=== PATIENT | male | born 1930 | race Caucasian/White ===

== ENCOUNTER 2017-12-13 17:13 | Observation (INO) | payer MEDICARE, OTHER ==
[2017-12-13 17:29] VITALS: BP 157/66; PULSE 71; RESP 16; TEMP 98.7; O2SAT 99
[2017-12-13 17:35] LABS: AUTOMATED NEUTROPHIL # 5.3 TH/MM3 (1.8-7.7); BASOPHIL # 0.1 TH/MM3 (0-0.2); BASOPHIL % 1.2 % (0.0-2.0); EOSINOPHIL # 0.2 TH/MM3 (0-0.4); EOSINOPHIL % 2.2 % (0.0-4.0); HEMATOCRIT 38.9 % (39.0-51.0); HEMOGLOBIN 13.4 GM/DL (13.0-17.0); LYMPH % 21.7 % (9.0-44.0); LYMPHOCYTE # 1.7 TH/MM3 (1.0-4.8); MEAN CELL VOLUME 86.8 FL (80.0-100.0); MEAN CORPUSCULAR HEMOGLOBIN 29.8 PG (27.0-34.0); MEAN CORPUSCULAR HGB CONC 34.4 % (32.0-36.0); MEAN PLATELET VOLUME 9.4 FL (7.0-11.0); MONO % 4.9 % (0.0-8.0); MONOCYTE # 0.4 TH/MM3 (0-0.9); PLATELET COUNT 95 TH/MM3 (150-450); RED BLOOD COUNT 4.48 MIL/MM3 (4.50-5.90); RED CELL DISTRIBUTION WIDTH 14.1 % (11.6-17.2); WHITE BLOOD COUNT 7.7 TH/MM3 (4.0-11.0)
[2017-12-13 17:39] VITALS: O2SAT 98
--- NOTE | 2017-12-13 17:44 | PD ---
HPI Chief Complaint: Altered Mental Status Time Seen by Provider: 17:18 Travel History International Travel<30 days: No Contact w/Intl Traveler<30days: No Traveled to known affect area: No History of Present Illness HPI Patient is a 87-year-old male who is brought to the emergency room for evaluation of possible TIA. 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 Family called patient earlier today and he was noted to have dysphagia, when family arrived at patient's home, patient had complete resolution of symptoms. Patient did endorse that earlier this morning, he had a headache, reports that headache has since resolved. Family reported concerns as around 420 this afternoon, patient had another episode of dysphagia as well as confusion. When EMS arrived on scene, patient had resolution of symptoms. Daughter does report that patient has history of bilateral carotid endarterectomies in the past, she noted that one of his carotid arteries had a moderate blockage. Patient is currently taking aspirin as well as Plavix. Patient with no complaints at this time. Patient with no vision changes, no headache, no chest pain or shortness of breath. PFSH Past Medical History Cerebrovascular Accident: Yes Social History Alcohol Use: No Tobacco Use: No Substance Use: No Allergies-Medications (Allergen,Severity, Reaction): Coded Allergies: No Known Allergies (Verified Allergy, Unknown, 12/13/17) Reported Meds & Prescriptions Reported Meds & Active Scripts Active Reported Metoprolol Tartrate 25 Mg Tab 25 Mg PO DAILY Atorvastatin (Atorvastatin Calcium) 40 Mg Tab 40 Mg PO HS Valsartan 80 Mg Tab 80 Mg PO DAILY Aspirin 81 Mg Chew 81 Mg CHEW DAILY Famotidine 40 Mg Tab 40 Mg PO BID Plavix (Clopidogrel Bisulfate) 75 Mg Tab 75 Mg PO DAILY Norvasc (Amlodipine Besylate) 2.5 Mg Tab 2.5 Mg PO BID Tradjenta (Linagliptin) 5 Mg Tab 5 Mg PO DAILY Metformin (Metformin HCl) 500 Mg Tab 500 Mg PO BIDPC Amaryl (Glimepiride) 4 Mg Tab 4 Mg PO BID Take with breakfast or the first main meal Review of Systems General / Constitutional: No: Fever Eyes: No: Visual changes HENT: Positive: Headaches Cardiovascular: No: Chest Pain or Discomfort Respiratory: No: Shortness of Breath Gastrointestinal: No: Abdominal Pain Genitourinary: No: Dysuria Musculoskeletal: No: Pain Skin: No Rash Neurologic: Positive: Slurred Speech, No: Weakness Psychiatric: No: Depression Endocrine: No: Polydipsia Hematologic/Lymphatic: No: Easy Bruising Physical Exam Narrative GENERAL: NAD, pleasantly confused SKIN: Focused skin assessment warm/dry. HEAD: Atraumatic. Normocephalic. EYES: Pupils equal and round. No scleral icterus. No injection or drainage. ENT: No nasal bleeding or discharge. Mucous membranes pink and moist. NECK: Trachea midline. No JVD. CARDIOVASCULAR: Regular rate and rhythm. No murmur appreciated. RESPIRATORY: No accessory muscle use. Clear to auscultation. Breath sounds equal bilaterally. GASTROINTESTINAL: Abdomen soft, non-tender, nondistended. Hepatic and splenic margins not palpable. MUSCULOSKELETAL: No obvious deformities. No clubbing. No cyanosis. No edema. NEUROLOGICAL: Awake and alert. No obvious cranial nerve deficits. Motor grossly within normal limits. Normal speech. PSYCHIATRIC: Appropriate mood and affect Data Data Last Documented VS Vital Signs Date Time Temp Pulse Resp B/P (MAP) Pulse Ox O2 Delivery O2 Flow Rate FiO2 12/13/17 17:39 98 Room Air 12/13/17 17:29 98.7 71 16 157/66 (96) Orders Orders Electrocardiogram (12/13/17 17:18) Prothrombin Time / Inr (Pt) (12/13/17 17:18) Act Partial Throm Time (Ptt) (12/13/17 17:18) Complete Blood Count With Diff (12/13/17 17:18) Comprehensive Metabolic Panel (12/13/17 17:18) Creatine Kinase (Cpk) (12/13/17 17:18) Troponin I (12/13/17 17:18) Urinalysis - C+S If Indicated (12/13/17 17:18) Ct Brain W/O Iv Contrast(Rout) (12/13/17 17:18) Chest, Single Ap (12/13/17 17:18) Ecg Monitoring (12/13/17 17:18) Iv Access Insert/Monitor (12/13/17 17:18) Oximetry (12/13/17 17:18) Blood Glucose (12/13/17 17:18) Aspirin Chew (Aspirin Chew) (12/13/17 18:45) Admit Order (Ed Use Only) (12/13/17 18:48) Labs Laboratory Tests Test 12/13/17 17:23 12/13/17 18:41 White Blood Count 7.7 TH/MM3 Red Blood Count 4.48 MIL/MM3 Hemoglobin 13.4 GM/DL Hematocrit 38.9 % Mean Corpuscular Volume 86.8 FL Mean Corpuscular Hemoglobin 29.8 PG Mean Corpuscular Hemoglobin Concent 34.4 % Red Cell Distribution Width 14.1 % Platelet Count 95 TH/MM3 Mean Platelet Volume 9.4 FL Neutrophils (%) (Auto) 70.0 % Lymphocytes (%) (Auto) 21.7 % Monocytes (%) (Auto) 4.9 % Eosinophils (%) (Auto) 2.2 % Basophils (%) (Auto) 1.2 % Neutrophils # (Auto) 5.3 TH/MM3 Lymphocytes # (Auto) 1.7 TH/MM3 Monocytes # (Auto) 0.4 TH/MM3 Eosinophils # (Auto) 0.2 TH/MM3 Basophils # (Auto) 0.1 TH/MM3 CBC Comment AUTO DIFF Differential Comment AUTO DIFF CONFIRMED Prothrombin Time 10.5 SEC Prothromb Time International Ratio 1.0 RATIO Activated Partial Thromboplast Time 24.9 SEC Blood Urea Nitrogen 18 MG/DL Creatinine 1.20 MG/DL Random Glucose 153 MG/DL Total Protein 7.1 GM/DL Albumin 3.5 GM/DL Calcium Level 8.9 MG/DL Alkaline Phosphatase 98 U/L Aspartate Amino Transf (AST/SGOT) 20 U/L Alanine Aminotransferase (ALT/SGPT) 32 U/L Total Bilirubin 0.7 MG/DL Sodium Level 140 MEQ/L Potassium Level 4.0 MEQ/L Chloride Level 108 MEQ/L Carbon Dioxide Level 25.3 MEQ/L Anion Gap 7 MEQ/L Estimat Glomerular Filtration Rate 58 ML/MIN Total Creatine Kinase 65 U/L Troponin I LESS THAN 0.02 NG/ML MDM Medical Decision Making Medical Screen Exam Complete: Yes Emergency Medical Condition: Yes Medical Record Reviewed: Yes Interpretation(s) EKG at 1731: NSR at 63bpm, 1st degree av block, qt/qtc: 406/414 Vital Signs Date Time Temp Pulse Resp B/P (MAP) Pulse Ox O2 Delivery O2 Flow Rate FiO2 12/13/17 17:29 98.7 71 16 157/66 (96) 99 Differential Diagnosis CVA, TIA, intracranial hemorrhage, arrhythmia, electrolyte abnormality Narrative Course Patient is an 87-year-old male presents to emergency room after he had 2 episodes of dysphagia today. Patient currently with resolution of symptoms at this time. He does have an extensive history of TIAs as well as CVAs and is currently taking aspirin as well as Plavix. During the course of the patients emergency department visit, the patients history, examination, and differential diagnosis were reviewed with the patient. The patient was placed on a laundry routeman with oximetry and frequent blood pressure monitoring. The patient had an IV access obtained and blood work sent for analysis. The patient was initially provided aspirin The patients laboratory studies were reviewed and remarkable for Laboratory Tests Test 12/13/17 17:23 12/13/17 18:41 White Blood Count 7.7 TH/MM3 (4.0-11.0) Red Blood Count 4.48 MIL/MM3 (4.50-5.90) Hemoglobin 13.4 GM/DL (13.0-17.0) Hematocrit 38.9 % (39.0-51.0) Mean Corpuscular Volume 86.8 FL (80.0-100.0) Mean Corpuscular Hemoglobin 29.8 PG (27.0-34.0) Mean Corpuscular Hemoglobin Concent 34.4 % (32.0-36.0) Red Cell Distribution Width 14.1 % (11.6-17.2) Platelet Count 95 TH/MM3 (150-450) Mean Platelet Volume 9.4 FL (7.0-11.0) Neutrophils (%) (Auto) 70.0 % (16.0-70.0) Lymphocytes (%) (Auto) 21.7 % (9.0-44.0) Monocytes (%) (Auto) 4.9 % (0.0-8.0) Eosinophils (%) (Auto) 2.2 % (0.0-4.0) Basophils (%) (Auto) 1.2 % (0.0-2.0) Neutrophils # (Auto) 5.3 TH/MM3 (1.8-7.7) Lymphocytes # (Auto) 1.7 TH/MM3 (1.0-4.8) Monocytes # (Auto) 0.4 TH/MM3 (0-0.9) Eosinophils # (Auto) 0.2 TH/MM3 (0-0.4) Basophils # (Auto) 0.1 TH/MM3 (0-0.2) CBC Comment AUTO DIFF Differential Comment AUTO DIFF CONFIRMED Prothrombin Time 10.5 SEC (9.8-11.6) Prothromb Time International Ratio 1.0 RATIO Activated Partial Thromboplast Time 24.9 SEC (24.3-30.1) Blood Urea Nitrogen 18 MG/DL (7-18) Creatinine 1.20 MG/DL (0.60-1.30) Random Glucose 153 MG/DL (74-106) Total Protein 7.1 GM/DL (6.4-8.2) Albumin 3.5 GM/DL (3.4-5.0) Calcium Level 8.9 MG/DL (8.5-10.1) Alkaline Phosphatase 98 U/L (45-117) Aspartate Amino Transf (AST/SGOT) 20 U/L (15-37) Alanine Aminotransferase (ALT/SGPT) 32 U/L (12-78) Total Bilirubin 0.7 MG/DL (0.2-1.0) Sodium Level 140 MEQ/L (136-145) Potassium Level 4.0 MEQ/L (3.5-5.1) Chloride Level 108 MEQ/L (98-107) Carbon Dioxide Level 25.3 MEQ/L (21.0-32.0) Anion Gap 7 MEQ/L (5-15) Estimat Glomerular Filtration Rate 58 ML/MIN (>89) Total Creatine Kinase 65 U/L (39-308) Troponin I LESS THAN 0.02 NG/ML Radiology studies were reviewed and remarkable for Last Impressions Head CT 12/13/171717 Signed Impressions: Service Date/Time: Wednesday, December 13, 2017 18:06 - CONCLUSION: No acute intracranial disease. Cerebral atrophy. Boy Montoya MD Chest X-Ray 12/13/171717 Signed Impressions: Service Date/Time: Wednesday, December 13, 2017 17:33 - CONCLUSION: No acute disease. Ryan Bolden MD Patient with resolution of symptoms at this time. Plan to observe patient for TIA. Case reviewed with Dr. Basurto who accepts pt to service Diagnosis Primary Impression: TIA (transient ischemic attack) Fidelina Dixon DO Dec 13, 2017 17:44
--- NOTE | 2017-12-13 17:46 | RADRPT ---
EXAM DATE/TIME: 12/13/2017 17:33 [facility] COMPARISON: No previous studies available for comparison. INDICATIONS : CVA. MEDICAL HISTORY : None. SURGICAL HISTORY : None. ENCOUNTER: Initial ACUITY: 1 day PAIN SCORE: 0/10 LOCATION: Bilateral chest FINDINGS: Patient is status post sternotomy. The heart size is normal. The lungs are clear. No effusion is seen . CONCLUSION: No acute disease. Ryan Bolden MD on December 13, 2017 at 17:43 Board Certified Radiologist. This report was verified electronically.
[2017-12-13 17:48] LABS: CHLORIDE 108 MEQ/L (98-107); SODIUM (NA) 140 MEQ/L (136-145)
[2017-12-13 17:52] LABS: ALBUMIN 3.5 GM/DL (3.4-5.0); BICARBONATE 25.3 MEQ/L (21.0-32.0); BLOOD UREA NITROGEN 18 MG/DL (7-18); CALCIUM 8.9 MG/DL (8.5-10.1); GLUCOSE,RANDOM 153 MG/DL (74-106)
[2017-12-13 17:55] LABS: ALT (GPT) 32 U/L (12-78); AST (GOT) 20 U/L (15-37)
[2017-12-13 17:56] LABS: GLOMERULAR FILTRATION RATE 58 ML/MIN (>89); PROTHROMBIN TIME - PATIENT 10.5 SEC (9.8-11.6)
[2017-12-13 17:57] LABS: TOTAL BILIRUBIN ADULT 0.7 MG/DL (0.2-1.0); TOTAL PROTEIN 7.1 GM/DL (6.4-8.2)
[2017-12-13 17:58] LABS: ALKALINE PHOSPHATASE 98 U/L (45-117)
[2017-12-13 18:00] LABS: TROPONIN I LESS THAN 0.02 NG/ML (0.02-0.05)
[2017-12-13] MEDS ORDERED: ASPI-516 CHEW (18:03)
[2017-12-13] MEDS ORDERED: AMAR4TAB PO (18:03)
[2017-12-13] MEDS ORDERED: METO25TA3 PO (18:03)
[2017-12-13] MEDS ORDERED: METF500T PO (18:03)
[2017-12-13] MEDS ORDERED: NORV2.5T PO (18:03)
[2017-12-13] MEDS ORDERED: VALS1TAB64 PO (18:03)
[2017-12-13] MEDS ORDERED: TRAD5TAB PO (18:03)
[2017-12-13] MEDS ORDERED: ATOR40TA16 PO (18:03)
[2017-12-13] MEDS ORDERED: PLAV75TA29 PO (18:03)
[2017-12-13] MEDS ORDERED: FAMO40TA PO (18:03)
--- NOTE | 2017-12-13 18:24 | RADRPT ---
EXAM DATE/TIME: 12/13/2017 18:06 [facility] COMPARISON: No previous studies available for comparison. INDICATIONS : Evaluate for TIA, jumbled speech earlier, and confusion. RADIATION DOSE: 48.69 CTDIvol (mGy) MEDICAL HISTORY : Cerebrovascular disease. Hypertension. CVA,Diabetes SURGICAL HISTORY : Shant endarectomy ENCOUNTER: Initial ACUITY: 1 day PAIN SCALE: 0/10 LOCATION: cranial TECHNIQUE: Multiple contiguous axial images were obtained of the head. Using automated exposure control and adj ustment of the mA and/or kV according to patient size, radiation dose was kept as low as reasonably a chievable to obtain optimal diagnostic quality images. DICOM format image data is available electro nically for review and comparison. FINDINGS: CEREBRUM: The ventricles are normal for age. Cerebral atrophy. No evidence of midline shift, mass lesion, hemo rrhage or acute infarction. No extra-axial fluid collections are seen. POSTERIOR FOSSA: The cerebellum and brainstem are intact. The 4th ventricle is midline. The cerebellopontine angle i s unremarkable. EXTRACRANIAL: The visualized portion of the orbits is intact. SKULL: The calvaria is intact. No evidence of skull fracture. CONCLUSION: No acute intracranial disease. Cerebral atrophy. Boy Montoya MD on December 13, 2017 at 18:21 Board Certified Radiologist. This report was verified electronically.
[2017-12-13] MEDS ORDERED: ASPIRIN 81 MG CHEW TAB PO ONE (18:45)
[2017-12-13 18:50] LABS: BILIRUBIN, URINE NEG (NEG); BLOOD, URINE NEG (NEG); GLUCOSE,URINE NEG (NEG); KETONE, URINE NEG (NEG); NITRITE,URINE NEG (NEG); URINE COLOR YELLOW (YELLW/STRAW); URINE LEUKOCYTE ESTERASE NEG (NEG)
[2017-12-13 18:55] LABS: SQUAMOUS EPITHELIAL CELL URINE 0-5 /hpf (0-5)
[2017-12-13] MEDS ORDERED: NALOXONE HCL 0.4 MG/ML AMP IV PUSH PRN (19:00)
[2017-12-13] MEDS ORDERED: SODIUM CHLORIDE 0.9% FLUSH 10 ML FLUSH IV FLUSH PRN (19:00)
[2017-12-13] MEDS ORDERED: DEXTROSE 50% IN WATER 50 ML VIAL(D50) IV PUSH PRN (19:00)
[2017-12-13] MEDS ORDERED: MAGNESIUM HYDROXIDE SUSP 30 ML CUP PO PRN (19:00)
[2017-12-13] MEDS ORDERED: GLUCAGON 1 MG/ML VIAL OTHER PRN (19:00)
[2017-12-13] MEDS ORDERED: ONDANSETRON HCL 4 MG/2 ML VIAL IVP PRN (19:00)
[2017-12-13 19:13] VITALS: BP 157/66; PULSE 69; RESP 16; O2SAT 99
[2017-12-13] MEDS ORDERED: PILL SPLITTER OTHER PRN (19:15)
[2017-12-13 20:30] VITALS: BP 168/74; PULSE 68; RESP 16; TEMP 97.8; O2SAT 98
[2017-12-13] MEDS: ATORVASTATIN 40 MG TAB PO SCH (22:09)
[2017-12-13] MEDS: SODIUM CHLORIDE 0.9% FLUSH 10 ML FLUSH IV FLUSH SCH (22:09)
[2017-12-13] MEDS: amLODIPine BESYLATE 5 MG TAB PO SCH (22:09)
[2017-12-13] MEDS: FAMOTIDINE 20 MG TAB PO SCH (22:10)
[2017-12-13] MEDS: INSULIN ASPART SUPPLEMENTAL SCALE SQ SCH (22:26)
[2017-12-14] VITALS (10 sets, daily range): BP systolic 130–169; BP diastolic 62–93; PULSE 67–73; RESP 16–18; TEMP 96–98.6; O2SAT 94–98
--- NOTE | 2017-12-14 00:11 | EKG ---
Date Performed: 12/13/2017 Time Performed: 17:31:43 PTAGE: 87 years EKG: Sinus rhythm WITH FIRST DEGREE AV BLOCK WITH OCCASIONAL VENTRICULAR PREMATURE COMPLEXES POSSIBLE LEFT VENTRICULAR HYPERTROPHY NONSPECIFIC T-WAVE ABNORMALITY ABNORMAL ECG NO PREVIOUS TRACING DOCTOR: Kirit Barillas Interpretating Date/Time 12/14/2017 00:09:55
[2017-12-14 06:05] LABS: AUTOMATED NEUTROPHIL # 6.2 TH/MM3 (1.8-7.7); BASOPHIL # 0.1 TH/MM3 (0-0.2); BASOPHIL % 0.6 % (0.0-2.0); EOSINOPHIL # 0.2 TH/MM3 (0-0.4); EOSINOPHIL % 2.7 % (0.0-4.0); HEMATOCRIT 39.8 % (39.0-51.0); HEMOGLOBIN 13.2 GM/DL (13.0-17.0); LYMPH % 20.2 % (9.0-44.0); LYMPHOCYTE # 1.8 TH/MM3 (1.0-4.8); MEAN CELL VOLUME 87.9 FL (80.0-100.0); MEAN CORPUSCULAR HEMOGLOBIN 29.1 PG (27.0-34.0); MEAN CORPUSCULAR HGB CONC 33.1 % (32.0-36.0); MEAN PLATELET VOLUME 8.9 FL (7.0-11.0); MONO % 7.7 % (0.0-8.0); MONOCYTE # 0.7 TH/MM3 (0-0.9); NEUT % 68.8 % (16.0-70.0); PLATELET COUNT 87 TH/MM3 (150-450); RED BLOOD COUNT 4.53 MIL/MM3 (4.50-5.90); RED CELL DISTRIBUTION WIDTH 13.6 % (11.6-17.2)
[2017-12-14 06:14] LABS: CHLORIDE 112 MEQ/L (98-107); SODIUM (NA) 149 MEQ/L (136-145)
[2017-12-14 06:22] LABS: ALBUMIN 3.5 GM/DL (3.4-5.0)
[2017-12-14 06:23] LABS: BLOOD UREA NITROGEN 17 MG/DL (7-18); GLUCOSE,RANDOM 113 MG/DL (74-106)
[2017-12-14 06:26] LABS: ALT (GPT) 29 U/L (12-78); AST (GOT) 17 U/L (15-37); GLOMERULAR FILTRATION RATE 64 ML/MIN (>89)
[2017-12-14 06:27] LABS: TOTAL BILIRUBIN ADULT 1.1 MG/DL (0.2-1.0)
[2017-12-14 06:29] LABS: ALKALINE PHOSPHATASE 82 U/L (45-117)
[2017-12-14] MEDS: INSULIN ASPART SUPPLEMENTAL SCALE SQ SCH ×4 (08:00→20:58)
[2017-12-14] MEDS ORDERED: METOPROLOL TARTRATE 25 MG TAB PO SCH (09:00)
[2017-12-14] MEDS: SODIUM CHLORIDE 0.9% FLUSH 10 ML FLUSH IV FLUSH SCH ×2 (09:00→20:29)
[2017-12-14] MEDS ORDERED: VALSARTAN 80 MG TAB PO SCH (09:00)
[2017-12-14] MEDS: FAMOTIDINE 20 MG TAB PO SCH ×2 (09:04→20:31)
[2017-12-14] MEDS: ASPIRIN 81 MG CHEW TAB CHEW SCH (09:04)
[2017-12-14] MEDS: amLODIPine BESYLATE 5 MG TAB PO SCH (09:05)
[2017-12-14] MEDS: CLOPIDOGREL 75 MG TAB PO SCH (09:06)
--- NOTE | 2017-12-14 09:10 | RADRPT ---
EXAM DATE/TIME: 12/14/2017 08:22 [facility] COMPARISON: No previous studies available for comparison. INDICATIONS : Dysphagia, confusion, and headache. MEDICAL HISTORY : Cerebrovascular disease. Hypertension. Hypercholesterolemia. Diabetes. CVA. SURGICAL HISTORY : Bilateral Carotid Endarterectomy. ENCOUNTER: Initial ACUITY: 1 day PAIN SCORE: Nonresponsive. LOCATION: Bilateral neck PEAK SYSTOLIC VELOCITIES (cm/sec): ICA/CCA RATIO: Right: 1.9 Left: 0.4 ICA: Right: 65.3 Left: 56.9 CCA: Right: 34.1 Left: 139.7 ECA: Right: 69.8 Left: 95.8 VERTEBRAL: Right: 33.6 antegrade Left: 32.0 antegrade Elevated flow velocities and ICA/CCA ratios have been found to correlate with increased degrees of vessel stenosis, calculated as percentage of diameter relative to a normal segment of distal ICA/CCA FINDINGS: Bilateral carotid endarterectomy has been performed. There is scattered atherosclerotic plaquing with out evidence for hemodynamically significant stenosis. There is antegrade flow in the bilateral verte bral arteries. CONCLUSION: No evidence for hemodynamically significant stenosis. Bowen Alvarez MD on December 14, 2017 at 9:07 Board Certified Radiologist. This report was verified electronically.
--- NOTE | 2017-12-14 10:46 | HHI.HP ---
[facility] Raymon Crenshaw MD Admission Diagnosis TIA Diagnoses: Chief Complaint: Garbled speech Travel History International Travel<30 Days: No Contact w/Intl Traveler <30 Da: No Traveled to Known Affected Are: No History of Present Illness 87-year-old white male admitted for strokelike symptoms Patient was in his usual state of health until sometime yesterday afternoon when his daughter had taken them out to their backyard dog and the patient was noted to have a sudden bout of incoherent speech that lasted for short while. By the time he was evaluated by healthcare personnel his symptoms had resolved. Speech was slurred and garbled per the daughter. Patient however was able to maintain unchanged baseline gait not requiring any further assistive devices. Patient did report having a mild headache around that timeframe which is now gone. Daughter says the patient does have some baseline confusion. There were no reports of any drooling or choking while eating. Patient denies having any focal vision changes. In the emergency department a head CT was performed which was negative. I independently reviewed the EKG which did not show any signs of atrial fibrillation. Review of Systems Except as stated in HPI: all other systems reviewed are Neg Past Family Social History Past Medical History CVA in the past Baseline confusion/dementia Past Surgical History Endarterectomy carotid bypass Allergies: Coded Allergies: No Known Allergies (Verified Allergy, Unknown, 12/13/17) Family History Heart attacks Social History Lives at [facility] assisted living facility within the past few years Stopped smoking in his 40s Physical Exam Vital Signs Vital Signs Date Time Temp Pulse Resp B/P (MAP) Pulse Ox O2 Delivery O2 Flow Rate FiO2 12/14/17 10:00 96.1 67 18 130/78 (95) 98 12/14/17 09:30 154/93 (113) 12/14/17 09:00 167/88 (114) 12/14/17 08:57 151/68 (95) 12/14/17 08:30 156/77 (103) 12/14/17 08:06 97.6 160/73 (102) 12/14/17 04:00 98.6 73 18 169/62 (97) 95 12/13/17 20:30 97.8 68 16 168/74 (105) 98 12/13/17 19:13 69 16 157/66 (96) 99 Room Air 12/13/17 19:13 16 99 Room Air 12/13/17 17:39 98 Room Air 12/13/17 17:29 98.7 71 16 157/66 (96) 99 Physical Exam VS: afebrile GENERAL: Lying in bed, no acute distress SKIN: Warm and dry. EYES: Pupils equal and round. No scleral icterus. No injection or drainage. ENT: No nasal bleeding or discharge. Mucous membranes pink and moist. CARDIOVASCULAR: Regular rate and rhythm. no murmurs RESPIRATORY: No accessory muscle use. Clear to auscultation. Breath sounds equal bilaterally. GASTROINTESTINAL: Abdomen soft, non-tender, nondistended. Extremities: No clubbing, cyanosis, or edema. No obvious deformities. MUSCULOSKELETAL: grossly intact ROM with 5/5 strength in upper and lower extremities proximally; adequate muscle bulk and tone for age and habitus NEUROLOGICAL: Awake and alert. No obvious cranial nerve deficits. No facial droop nor slurred speech noted. Absent patellar reflexes bilaterally, intact sensation to soft touch over lower extremity shins, upper extremity forearms bilaterally, and over the face PSYCHIATRIC: Appropriate mood and affect; insight and judgment normal. Laboratory Laboratory Tests Test 12/13/17 17:23 12/13/17 18:41 12/14/17 05:38 White Blood Count 7.7 9.0 Red Blood Count 4.48 4.53 Hemoglobin 13.4 13.2 Hematocrit 38.9 39.8 Mean Corpuscular Volume 86.8 87.9 Mean Corpuscular Hemoglobin 29.8 29.1 Mean Corpuscular Hemoglobin Concent 34.4 33.1 Red Cell Distribution Width 14.1 13.6 Platelet Count 95 87 Mean Platelet Volume 9.4 8.9 Neutrophils (%) (Auto) 70.0 68.8 Lymphocytes (%) (Auto) 21.7 20.2 Monocytes (%) (Auto) 4.9 7.7 Eosinophils (%) (Auto) 2.2 2.7 Basophils (%) (Auto) 1.2 0.6 Neutrophils # (Auto) 5.3 6.2 Lymphocytes # (Auto) 1.7 1.8 Monocytes # (Auto) 0.4 0.7 Eosinophils # (Auto) 0.2 0.2 Basophils # (Auto) 0.1 0.1 CBC Comment AUTO DIFF AUTO DIFF Differential Comment AUTO DIFF CONFIRMED AUTO DIFF CONFIRMED Prothrombin Time 10.5 Prothromb Time International Ratio 1.0 Activated Partial Thromboplast Time 24.9 Blood Urea Nitrogen 18 17 Creatinine 1.20 1.10 Random Glucose 153 113 Total Protein 7.1 7.0 Albumin 3.5 3.5 Calcium Level 8.9 9.0 Alkaline Phosphatase 98 82 Aspartate Amino Transf (AST/SGOT) 20 17 Alanine Aminotransferase (ALT/SGPT) 32 29 Total Bilirubin 0.7 1.1 Sodium Level 140 149 Potassium Level 4.0 4.0 Chloride Level 108 112 Carbon Dioxide Level 25.3 27.0 Anion Gap 7 10 Estimat Glomerular Filtration Rate 58 64 Total Creatine Kinase 65 Troponin I LESS THAN 0.02 Urine Color YELLOW Urine Turbidity CLEAR Urine pH 6.0 Urine Specific [place] 1.010 Urine Protein NEG Urine Glucose (UA) NEG Urine Ketones NEG Urine Occult Blood NEG Urine Nitrite NEG Urine Bilirubin NEG Urine Urobilinogen 0.2 Urine Leukocyte Esterase NEG Urine Squamous Epithelial Cells 0-5 Microscopic Urinalysis Comment CATH-CULT NOT IND Platelet Estimate LOW Platelet Morphology Comment NORMAL Erythrocyte Sedimentation Rate 8 Thyroid Stimulating Hormone 3rd Gen 2.250 Result Diagram: 12/14/17 0538 12/14/17 0538 Imaging Last Impressions Carotid Artery Ultrasound 12/14/17 0000 Signed Impressions: Service Date/Time: Thursday, December 14, 2017 08:22 - CONCLUSION: No evidence for hemodynamically significant stenosis. Bowen Alvarez MD Head CT 12/13/171717 Signed Impressions: Service Date/Time: Wednesday, December 13, 2017 18:06 - CONCLUSION: No acute intracranial disease. Cerebral atrophy. Boy Montoya MD Chest X-Ray 12/13/171717 Signed Impressions: Service Date/Time: Wednesday, December 13, 2017 17:33 - CONCLUSION: No acute disease. Ryan Bolden MD Capruddy VTE Risk Assessment Caprini VTE Risk Assessment: Mod/High Risk (score >= 2) Caprini Risk Assessment Model Point Value = 1 Point Value = 2 Point Value = 3 Point Value = 5 Age 41-60 Minor surgery BMI > 25 kg/m2 Swollen legs Varicose veins or History of unexplained or recurrent spontaneous Oral contraceptives or hormone replacement Sepsis (< 1 month) Serious lung disease, including pneumonia (< 1 month) Abnormal pulmonary function Acute myocardial infarction Congestive heart failure (< 1 month) History of inflammatory bowel disease Medical patient at bed rest Age 61-74 Arthroscopic surgery Major open surgery (> 45 min) Laparoscopic surgery (> 45 min) Malignancy Confined to bed (> 72 hours) Immobilizing plaster cast Central venous access Age >= 75 History of VTE Family history of VTE Factor V Leiden Prothrombin [id number] Lupus anticoagulant Anticardiolipin antibodies Elevated serum homocysteine Heparin-induced thrombocytopenia Other congenital or acquired thrombophilia Stroke (< 1 month) Elective arthroplasty Hip, pelvis, or leg fracture Acute spinal cord injury (< 1 month) Prophylaxis Regimen Total Risk Factor Score Risk Level Prophylaxis Regimen 0-1 Low Early ambulation 2 Moderate Order ONE of the following: *Sequential Compression Device (SCD) *Heparin 5000 units SQ BID 3-4 Higher Order ONE of the following medications: *Heparin 5000 units SQ TID *Enoxaparin/Lovenox 40 mg SQ daily (WT < 150 kg, CrCl > 30 mL/min) *Enoxaparin/Lovenox 30 mg SQ daily (WT < 150 kg, CrCl > 10-29 mL/min) *Enoxaparin/Lovenox 30 mg SQ BID (WT < 150 kg, CrCl > 30 mL/min) AND/OR *Sequential Compression Device (SCD) 5 or more Highest Order ONE of the following medications: *Heparin 5000 units SQ TID (Preferred with Epidurals) *Enoxaparin/Lovenox 40 mg SQ daily (WT < 150 kg, CrCl > 30 mL/min) *Enoxaparin/Lovenox 30 mg SQ daily (WT < 150 kg, CrCl > 10-29 mL/min) *Enoxaparin/Lovenox 30 mg SQ BID (WT < 150 kg, CrCl > 30 mL/min) AND *Sequential Compression Device (SCD) Assessment and Plan Assessment and Plan 87-year-old white male admitted for strokelike symptoms Strokelike symptoms -Likely a transient ischemic attack his symptoms have resolved -Permissive hypertension -CT head is negative for acute findings -MRI ordered, carotid ultrasound and echocardiogram are also warranted -EKG which I independently reviewed is unremarkable for any atrial fibrillation , will consider Holter monitor upon discharge -Would be advisable to follow with neurology outpatient -Continue aspirin and Plavix for now -Continue home Lipitor for now -fall precautions, OT/ST/PT CAD -Continue home aspirin Plavix and Lipitor Jaquan Sorensen MD Dec 14, 2017 10:46
[2017-12-14 11:26] LABS: CHOLESTEROL 97 MG/DL (120-200); TRIGLYCERIDES 162 MG/DL (42-150)
[2017-12-14 11:28] LABS: HDL CHOLESTEROL 35.9 MG/DL (40.0-60.0); LDL CHOLESTEROL 29 MG/DL (0-99)
[2017-12-14 11:53] LABS: FOLATE GREATER THAN 20.0 NG/ML (3.1-17.5)
[2017-12-14 13:30] LABS: HEMOGLOBIN A1C 6.2 % (4.3-6.0)
[2017-12-14] MEDS ORDERED: LORazepam 2 MG/ML VIAL IV PUSH ONE (15:30)
--- NOTE | 2017-12-14 16:51 | RADRPT ---
EXAM DATE/TIME: 12/14/2017 16:09 [facility] COMPARISON: CT BRAIN W/O CONTRAST, December 13, 2017, 18:06. INDICATIONS : Altered mental status. MEDICAL HISTORY : Cerebrovascular disease. Carotid stenosis. Dementia. SURGICAL HISTORY : CABG ENCOUNTER: Initial ACUITY: 1 day PAIN SCORE: 0/10 LOCATION: cranial TECHNIQUE: Multiplanar, multisequence MRI of the brain was performed without contrast. FINDINGS: CEREBRUM: Moderate diffuse cerebral atrophy. The ventricles are in the upper limits of normal given degree of a trophy. No evidence of midline shift, mass lesion, hemorrhage or acute infarction. No extraaxial fl uid collections are seen. The pituitary gland and suprasellar cistern are normal in configuration. WHITE MATTER: Moderate periventricular and focal white matter T2 prolongation. POSTERIOR FOSSA: The cerebellum and brainstem are intact. The 4th ventricle is midline. The cerebellopontine angle is unremarkable. The cerebellar tonsils are normal in position. DIFFUSION IMAGING: No focal areas of restricted diffusion are seen. No evidence of acute infarction. EXTRACRANIAL: The visualized portions of the orbits and paranasal sinuses are unremarkable. CONCLUSION: 1. Senescent changes with moderate ischemic small vessel periventricular white matter demyelination. 2. No acute abnormality. Specifically, no acute infarction, hemorrhage or mass. Fidel Perry MD on December 14, 2017 at 16:45 Board Certified Radiologist. This report was verified electronically.
--- NOTE | 2017-12-14 16:52 | RADRPT ---
EXAM DATE/TIME: 12/14/2017 16:09 [facility] COMPARISON: No previous studies available for comparison. INDICATIONS : Altered mental status. MEDICAL HISTORY : Cerebrovascular disease. Carotid stenosis. Dementia. SURGICAL HISTORY : CABG ENCOUNTER: Initial ACUITY: 1 day PAIN SCORE: 0/10 LOCATION: cranial Please note a normal MRA of the brain does not entirely exclude the possibility of a small aneurysm, nor the possibility of distal intracranial vessel disease. TECHNIQUE: 3D time of flight MRA was performed. Source images, multiplanar STS MIP, and 3D volume MIP reconstru ctions were reviewed. FINDINGS: Anterior circulation: Distal intracranial internal carotid arteries are patent with flow extending to the middle and anteri or cerebral arteries. There is no evidence for aneurysm, vessel truncation or stenosis, and no eviden ce for vascular malformation. Posterior circulation: Symmetric distal vertebral arteries with flow extending to basilar artery. There is no evidence for aneurysm, vessel truncation or stenosis, and no evidence for vascular malformation. CONCLUSION: 1. Unremarkable MRA examination of the [place]. Specifically, no evidence for large vessel o cclusion or significant stenosis. Fidel Perry MD on December 14, 2017 at 16:48 Board Certified Radiologist. This report was verified electronically.
[2017-12-14] MEDS ORDERED: diphenhydrAMINE HCL 50 MG/ML VIAL IV PUSH ONE (20:15)
[2017-12-14] MEDS: ATORVASTATIN 40 MG TAB PO SCH (20:31)
[2017-12-14] MEDS ORDERED: ENOXAPARIN SODIUM 30 MG/0.3 ML SYRINGE SQ SCH (21:00)
[2017-12-14] MEDS ORDERED: HALOPERIDOL LACTATE 5 MG/ML AMP IM ONE ×2 (21:45→22:45)
[2017-12-14] MEDS ORDERED: HALOPERIDOL LACTATE 5 MG/ML AMP IM PRN (21:45)
[2017-12-15 00:36] VITALS: BP 154/72; PULSE 110; RESP 18; TEMP 97.6; O2SAT 97
[2017-12-15 07:50] VITALS: BP 126/61; PULSE 79; RESP 20; TEMP 98.1; O2SAT 97
--- NOTE | 2017-12-15 08:42 | MB ---
cc: Tulio Cooper MD, PhD DATE: 12/14/2017 REASON FOR CONSULTATION: Possible TIA. HISTORY OF PRESENT ILLNESS: Mr. 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 His states that yesterday, he suddenly developed slurring of his speech, with no focal deficits, especially in a few minutes and he was back to his baseline state. He was brought to the ER. He had no facial droop. He takes Plavix and aspirin for his previous stroke. PAST MEDICAL HISTORY: He has history of left carotid endarterectomy, coronary artery bypass procedure, stroke in the past, dementia. MEDICATIONS: Currently are Lovenox 30 mg subcutaneous daily, aspirin 81 mg daily, Plavix 75 mg daily, Lipitor 40 mg daily, Pepcid 40 mg b.i.d., Zofran p.r.n. NEUROLOGICAL PHYSICAL EXAMINATION: VITAL SIGNS: His blood pressure is 161/71, pulse 71, respirations 18, temperature 97.1 degrees. GENERAL: Higher cortical function. He is alert. Speech is fluent at this time. No dysarthria, no aphasia. He has poor recent memory. He is somewhat agitated. NEUROLOGIC: Cranial nerves intact. Motor, no focal deficits are identified. IMAGING: MR of the brain, no acute change present. There is atrophy. Carotid ultrasound, no evidence for any significant stenosis. Head MRA is unremarkable. CT brain, no acute change. LABORATORY DATA: White count is 9000, hemoglobin 13.2, hematocrit 39.8%, platelet count 87,000. Sedimentation rate is 8. His PT is 10.5. INR 1, APTT 24.9. Sodium is 149, potassium is 4, chloride 112, CO2 is 27, the BUN is 17, creatinine 1.1, GFR 64, glucose is 113, calcium is 9. AST is 17, ALT is 29. Cholesterol 97, LDL 29, triglycerides 162. ECHOCARDIOGRAM: First degree AV block, occasional PVCs. Normal sinus rhythm. IMPRESSION: 1. Possible transient ischemic attack. 2. Dementia. PLAN: Will followup on the echocardiogram. Unless a cardiac embolic source is definitely proven, would recommend continuing Plavix and aspirin therapy. Tulio Cooper MD, PhD SIMONE/ALANNAH , 08:46 PM , 09:16 PM
[2017-12-15] MEDS: INSULIN ASPART SUPPLEMENTAL SCALE SQ SCH ×3 (09:17→17:00)
[2017-12-15] MEDS: SODIUM CHLORIDE 0.9% FLUSH 10 ML FLUSH IV FLUSH SCH (09:18)
[2017-12-15] MEDS: FAMOTIDINE 20 MG TAB PO SCH (09:18)
[2017-12-15] MEDS: CLOPIDOGREL 75 MG TAB PO SCH (09:18)
[2017-12-15] MEDS: ASPIRIN 81 MG CHEW TAB CHEW SCH (09:18)
--- NOTE | 2017-12-15 09:19 | HHI.PR ---
Review/Management Diagnosis follow up on echo. If normal ok from neuro standpoint to discharge stare seroquel 100 mg HS Diagnosis/Plan: Subjective Subjective Comments No acute events reported Patient was very aggitated last PM--received haldol Active Medications Current Medications Medications (Trade) Dose Ordered Sig/Ariadna Route Start Time Stop Time Status Last Admin (NS Flush) 2 ml UNSCH PRN IV FLUSH 12/13/17 19:00 (NS Flush) 2 ml BID IV FLUSH 12/13/17 21:00 12/14/17 20:29 (Zofran Inj) 4 mg Q6H PRN IVP 12/13/17 19:00 (Narcan Inj) 0.4 mg UNSCH PRN IV PUSH 12/13/17 19:00 (Milk Of Magnesia Liq) 30 ml Q12H PRN PO 12/13/17 19:00 (Aspirin Chew) 81 mg DAILY CHEW 12/14/17 09:00 12/14/17 09:04 (Lipitor) 40 mg HS PO 12/13/17 21:00 12/14/17 20:31 (Plavix) 75 mg DAILY PO 12/14/17 09:00 12/14/17 09:06 (Pepcid) 40 mg BID PO 12/13/17 21:00 12/14/17 20:31 (D50w (Vial) Inj) 50 ml UNSCH PRN IV PUSH 12/13/17 19:00 (Glucagon Inj) 1 mg UNSCH PRN OTHER 12/13/17 19:00 (NovoLOG SUPPLEMENTAL SCALE) 1 ACHS SLIDING SCALE SQ 12/13/17 21:00 12/14/17 20:58 (Pill Splitter) 1 ea UNSCH PRN OTHER 12/13/17 19:15 (Lovenox Inj) 30 mg Q24H SQ 12/14/17 21:00 12/14/17 20:30 (Haldol Inj) 5 mg Q6H PRN IM 12/14/17 21:45 Allergies Allergies Coded Allergies No Known Allergies (Verified Allergy, Unknown, 12/13/17) Exam I&O / VS Vital Signs Date Time Temp Pulse Resp B/P (MAP) Pulse Ox O2 Delivery O2 Flow Rate FiO2 12/15/17 07:50 98.1 79 20 126/61 (82) 97 12/15/17 00:36 97.6 110 18 154/72 (99) 97 12/14/17 20:00 97.1 71 18 167/71 (103) 94 12/14/17 16:00 96.0 67 18 149/67 (94) 98 12/14/17 12:00 96.7 70 16 161/70 (100) 98 12/14/17 10:00 96.1 67 18 130/78 (95) 98 12/14/17 09:30 154/93 (113) Exam Comments alert, disoriented follow commands CN intact motor no focal deficits Objective Diagnostic Tests echo----pending Tulio Cooper MD PhD Dec 15, 2017 09:19
[2017-12-15 11:50] VITALS: BP 134/61; PULSE 74; RESP 20; TEMP 96.1; O2SAT 96
[2017-12-15] MEDS ORDERED: WALKER WHEELS/F1 MIS (13:50)
--- NOTE | 2017-12-15 13:51 | HHI.DCPOC ---
Discharge Care Plan Diagnosis: (1) TIA (transient ischemic attack) Goals to Promote Your Health * To prevent worsening of your condition and complications * To maintain your health at the optimal level Directions to Meet Your Goals Take your medications as prescribed Follow your dietary instruction Follow activity as directed Keep your appointments as scheduled Take your immunizations and boosters as scheduled If your symptoms worsen call your PCP, if no PCP go to Urgent Care Center or Emergency Room Smoking is Dangerous to Your Health. Avoid second hand smoke Call the 24-hour hour crisis hotline for domestic abuse at Mehul Martinez Dec 15, 2017 13:51
--- NOTE | 2017-12-15 14:07 | HHI.PR ---
Subjective Remarks Nursing reports patient did have some confusion and delirium last night. Resolved this a.m., tolerating p.o. intake well. Objective Vital Signs Date Time Temp Pulse Resp B/P (MAP) Pulse Ox O2 Delivery O2 Flow Rate FiO2 12/15/17 11:50 96.1 74 20 134/61 (85) 96 12/15/17 07:50 98.1 79 20 126/61 (82) 97 12/15/17 00:36 97.6 110 18 154/72 (99) 97 12/14/17 20:00 97.1 71 18 167/71 (103) 94 12/14/17 16:00 96.0 67 18 149/67 (94) 98 I/O 12/14/17 12/14/17 12/14/17 12/15/17 12/15/17 12/15/17 07:00 15:00 23:00 07:00 15:00 23:00 Intake Total 0 ml 660 ml Output Total 0 ml Balance 0 ml 660 ml Intake Oral 660 ml Other 0 ml Output Urine Total 0 ml # Voids 4 # Bowel Movements 0 Result Diagram: 12/14/17 0538 12/14/17 0538 Objective Remarks No facial droop, no slurred speech, #5 proximal upper extremity strength bilaterally alert, pleasant mood A/P Assessment and Plan Strokelike symptoms -No recurrence. Brain MRI/MRi, US ultrasound, echo cardiogram are all unremarkable -Clear to discharge from neurologist -To remain on Plavix, aspirin, Lipitor. Patient has been maximal benefit from hospitalization and is clinically stable for discharge Jaquan Cordon MD Dec 15, 2017 14:07
[2017-12-15 14:41] LABS: CALCIUM 9.1 MG/DL (8.5-10.1)
[2017-12-15 14:42] LABS: BICARBONATE 28.2 MEQ/L (21.0-32.0)
[2017-12-15 14:45] LABS: CREATININE 1.6 MG/DL (0.60-1.30)
[2017-12-15 15:50] VITALS: BP 132/98; PULSE 79; RESP 20; TEMP 96.1; O2SAT 98
--- NOTE | 2017-12-15 19:26 | ECHRPT ---
Indication: CVA/TIA CONCLUSIONS Normal left ventricular size. Mild concentric left ventricular hypertrophy. The left ventricular systolic function is low normal with an estimated ejection fraction of 50%. Aortic valve sclerosis is present. Mild thickening of the tricuspid valve leaflets. There is trace tricuspid valve regurgitation. The estimated pulmonary arterial pressure is 38 mmHg. BP: 154 / 72 HR: 110 Rhythm: Sinus MEASUREMENTS (Male / Female) Normal Values Technical Quality:Very technically difficult study M-MODE LV Diastolic Diameter MM 3.8 cm 4.2 - 5.9 / 3.9 - 5.3 cm LV Systolic Diameter MM 2.9 cm LV Ejection Fraction MM Teich 45.7 % IVS Diastolic Thickness MM 1.1 cm 0.6 - 1.0 / 0.6 - 0.9 cm LVPW Diastolic Thickness MM 1.3 cm 0.6 - 1.0 / 0.6 - 0.9 cm LV Relative Wall Thickness MM 0.6 0.24 - 0.42 / 0.22 - 0.42 DOPPLER AV Peak Velocity 110.0 cm/s AV Peak Gradient 4.8 mmHg AV Mean Gradient 2.0 mmHg AV Velocity Time Integral 18.2 cm LVOT Peak Velocity 88.0 cm/s LVOT Peak Gradient 3.1 mmHg LVOT Velocity Time Integral 11.9 cm TR Peak Velocity 263.0 cm/s TR Peak Gradient 27.7 mmHg Right Atrial Pressure 10.0 mmHg Pulmonary Artery Systolic Pressu 37.7 mmHg Right Ventricular Systolic Press 37.7 mmHg PV Peak Velocity 96.3 cm/s PV Peak Gradient 3.7 mmHg FINDINGS LEFT VENTRICLE Normal left ventricular size. Mild concentric left ventricular hypertrophy. The left ventricular systolic function is low normal with an estimated ejection fraction of 50%. RIGHT VENTRICLE Normal right ventricular size and systolic function. LEFT ATRIUM The left atrial size is normal. RIGHT ATRIUM The right atrial size is normal. ATRIAL SEPTUM The interatrial septum not well visualized. AORTA The aortic root and proximal ascending aorta are not well visualized. MITRAL VALVE The mitral valve is not well visualized. AORTIC VALVE Aortic valve sclerosis is present. TRICUSPID VALVE Mild thickening of the tricuspid valve leaflets. There is trace tricuspid valve regurgitation. The estimated pulmonary arterial pressure is 37.7 mmHg. PULMONARY VALVE No pulmonary valve regurgitation or stenosis. VESSELS The inferior vena cava was not well visualized. PERICARDIUM No pericardial effusion. Carmen Daly MD, FACC (Electronically Signed) Final Date:15 December 2017 19:26
[2017-12-15] MEDS ORDERED: QUEtiapine FUMARATE 100 MG TAB PO SCH (21:00)
== END 2017-12-15 20:28 ==
LOC: PHED 17:13 → PHEDA 18:49 → PHICU 20:24 → PH3A 12-14 09:49
PROVIDERS: ADMIT Hospitalist; ATTEND Hospitalist
DX: G45.9 Transient cerebral ischemic attack, unspecified (principal); F03.90 Unspecified dementia, unspecified severity, without behavioral disturbance, psychotic disturbance, mood disturbance, and anxiety; I25.10 Atherosclerotic heart disease of native coronary artery without angina pectoris; I44.0 Atrioventricular block, first degree; R94.31 Abnormal electrocardiogram [ECG] [EKG]; Z95.1 Presence of aortocoronary bypass graft; Z79.82 Long term (current) use of aspirin; Z79.02 Long term (current) use of antithrombotics/antiplatelets; Z79.899 Other long term (current) drug therapy; Z87.891 Personal history of nicotine dependence; Z86.73 Personal history of transient ischemic attack (TIA), and cerebral infarction without residual deficits
CPT/HCPCS: 70450; 70544; 70551; 71045; 80048; 80053; 80061; 81001; 82550; 82607; 82746; 82948; 83036; 84443; 84484; 85025; 85610; 85652; 85730; 92610; 93005; 93306; 93880; 96372; 96374; 96375; 97110; 97116; 97162; 97166; 99285; G0378; G8987; G8988; G8996; G8997; G8998; J1200; J1630; J1650; J1815; J2060

== ENCOUNTER 2017-12-25 01:11 | Emergency (ER) | payer MEDICARE, OTHER ==
[~2017-12-25] VITALS: Ht 177.8 cm; Wt 77.0 kg
[~2017-12-25 01:11] MED LIST: AMAR4TAB PO; ASPI-516 CHEW; ATOR40TA16 PO; FAMO40TA PO; METF500T PO; METO25TA3 PO; NORV2.5T PO; PLAV75TA29 PO; TRAD5TAB PO; VALS1TAB64 PO; WALKER WHEELS/F1 MIS
[2017-12-25 01:37] VITALS: BP 153/73; PULSE 75; RESP 16; TEMP 97.7; O2SAT 94
--- NOTE | 2017-12-25 01:51 | PD ---
HPI Chief Complaint: Chest Pain Time Seen by Provider: 01:18 Travel History International Travel<30 days: No Contact w/Intl Traveler<30days: No Traveled to known affect area: No History of Present Illness HPI Patient is an 87-year-old male from a nursing facility assisted living he apparently had chest pain when I asked him what he was doing when the chest pain started he said I was doing nothing he was awake he says it did not wake him from sleep however the pain is gone. He arrived by EMS but he is unaware whether they gave him any medication in the ambulance he says the pain is gone it stopped in the ambulance while he was in route. Paramedics gave report to the nurse they just gave him 500 cc normal saline and no other medical intervention. Patient reports he has a history of having a heart attack in the past but the patient does have dementia. He is awake and alert but he is a poor historian therefore ROS and HPI are limited due to his mental status PFSH Past Medical History Anxiety: Yes Depression: No Cancer: No Cardiovascular Problems: Yes High Cholesterol: Yes Chemotherapy: No Cerebrovascular Accident: Yes (2000 & MULTIPLE TIA) Diabetes: Yes Patient Takes Glucophage: Yes Endocrine: Yes Gastrointestinal Disorders: Yes Genitourinary: No Hypertension: Yes Musculoskeletal: No Neurologic: Yes Psychiatric: Yes Reproductive: No Respiratory: No Radiation Therapy: No Tetanus Vaccination: < 5 Years Influenza Vaccination: Yes Past Surgical History AICD: No Cardiac Surgery: Yes (BILATERAL CAROTID ENDARTERECTOMY) Eye Surgery: Yes (BILATERAL CATARACT SURGERY) Joint Replacement: No Pacemaker: No Other Surgery: Yes (CABG X 4 1997) Social History Alcohol Use: No Tobacco Use: No Substance Use: No Allergies-Medications (Allergen,Severity, Reaction): Coded Allergies: No Known Allergies (Verified Allergy, Unknown, 12/25/17) Reported Meds & Prescriptions Reported Meds & Active Scripts Active Walker with Front Wheels (Device) 1 Mis Mis Ea .XX DIRECTED Reported Metoprolol Tartrate 25 Mg Tab 25 Mg PO DAILY Atorvastatin (Atorvastatin Calcium) 40 Mg Tab 40 Mg PO HS Valsartan 80 Mg Tab 80 Mg PO DAILY Aspirin 81 Mg Chew 81 Mg CHEW DAILY Famotidine 40 Mg Tab 40 Mg PO BID Plavix (Clopidogrel Bisulfate) 75 Mg Tab 75 Mg PO DAILY Norvasc (Amlodipine Besylate) 2.5 Mg Tab 2.5 Mg PO BID Tradjenta (Linagliptin) 5 Mg Tab 5 Mg PO DAILY Metformin (Metformin HCl) 500 Mg Tab 500 Mg PO BIDPC Amaryl (Glimepiride) 4 Mg Tab 4 Mg PO BID Take with breakfast or the first main meal Review of Systems ROS Limitations: Poor Historian, Other: (dementia) Except as stated in HPI: all other systems reviewed are Neg Physical Exam Narrative GENERAL: alert xo2 SKIN: Warm and dry. HEAD: Atraumatic. Normocephalic. EYES: Pupils equal and round. No scleral icterus. No injection or drainage. ENT: No nasal bleeding or discharge. Mucous membranes pink and moist. NECK: Trachea midline. No JVD. CARDIOVASCULAR: Regular rate and rhythm. RESPIRATORY: No accessory muscle use. Clear to auscultation. Breath sounds equal bilaterally. GASTROINTESTINAL: Abdomen soft, non-tender, nondistended. Hepatic and splenic margins not palpable. MUSCULOSKELETAL: Extremities without clubbing, cyanosis, or edema. No obvious deformities. NEUROLOGICAL: Awake and alert. No obvious cranial nerve deficits. Motor grossly within normal limits. Five out of 5 muscle strength in the arms and legs. Normal speech. PSYCHIATRIC: Appropriate mood and affect; insight and judgment normal. Data Data Last Documented VS Orders Orders Electrocardiogram (12/25/17 01:50) Complete Blood Count With Diff (12/25/17 01:50) Comprehensive Metabolic Panel (12/25/17 01:50) Ckmb (Isoenzyme) Profile (12/25/17 01:50) Troponin I (12/25/17 01:50) Lipase (12/25/17 01:50) Urinalysis - C+S If Indicated (12/25/17 01:50) Chest, Single Ap (12/25/17 01:50) Troponin I (12/25/17 05:23) Ed Discharge Order (12/25/17 06:08) Labs Laboratory Tests Test 12/25/17 01:53 12/25/17 02:17 12/25/17 05:27 White Blood Count 7.5 TH/MM3 Red Blood Count 4.30 MIL/MM3 Hemoglobin 12.2 GM/DL Hematocrit 37.5 % Mean Corpuscular Volume 87.3 FL Mean Corpuscular Hemoglobin 28.3 PG Mean Corpuscular Hemoglobin Concent 32.4 % Red Cell Distribution Width 13.3 % Platelet Count 104 TH/MM3 Mean Platelet Volume 8.8 FL Neutrophils (%) (Auto) 63.1 % Lymphocytes (%) (Auto) 26.2 % Monocytes (%) (Auto) 8.2 % Eosinophils (%) (Auto) 2.0 % Basophils (%) (Auto) 0.5 % Neutrophils # (Auto) 4.7 TH/MM3 Lymphocytes # (Auto) 2.0 TH/MM3 Monocytes # (Auto) 0.6 TH/MM3 Eosinophils # (Auto) 0.2 TH/MM3 Basophils # (Auto) 0.0 TH/MM3 CBC Comment DIFF FINAL Differential Comment Blood Urea Nitrogen 24 MG/DL Creatinine 1.30 MG/DL Random Glucose 244 MG/DL Total Protein 6.8 GM/DL Albumin 3.1 GM/DL Calcium Level 9.0 MG/DL Alkaline Phosphatase 116 U/L Aspartate Amino Transf (AST/SGOT) 23 U/L Alanine Aminotransferase (ALT/SGPT) 38 U/L Total Bilirubin 0.5 MG/DL Sodium Level 139 MEQ/L Potassium Level 4.5 MEQ/L Chloride Level 103 MEQ/L Carbon Dioxide Level 28.1 MEQ/L Anion Gap 8 MEQ/L Estimat Glomerular Filtration Rate 52 ML/MIN Total Creatine Kinase 58 U/L Troponin I LESS THAN 0.02 NG/ML LESS THAN 0.02 NG/ML Lipase 511 U/L Urine Color YELLOW Urine Turbidity CLEAR Urine pH 7.0 Urine Specific [place] 1.010 Urine Protein NEG mg/dL Urine Glucose (UA) 500 mg/dL Urine Ketones NEG mg/dL Urine Occult Blood NEG Urine Nitrite NEG Urine Bilirubin NEG Urine Urobilinogen 0.2 MG/DL Urine Leukocyte Esterase NEG Urine WBC 0-2 /hpf Urine Squamous Epithelial Cells 0-5 /hpf Microscopic Urinalysis Comment CULT NOT INDICATED MDM Medical Decision Making Medical Screen Exam Complete: Yes Emergency Medical Condition: Yes Differential Diagnosis CP of CAD Ischemia vs GERD vs PNA vs costochondritis , vs trauma , vs fractured rib other Narrative Course pt trop x2 is negative and EKG no specific finding no ST elevatiom , I want to admit to tele but daughter reports that his last admisson for TIA he became so disoriented and that this lasted for days and she would rather him go back to j=his home assisted living situation . I agree after 2 troponins negative I do not make them sign out AMA due to risk insurance could deny re-imbusement to pt Diagnosis Primary Impression: Atypical chest pain Patient Instructions: Chest Pain (ED), General Instructions Disposition: 01 DISCHARGE HOME Condition: Suhali Cameron MD December 25, 2017 01:51
--- NOTE | 2017-12-25 02:06 | RADRPT ---
EXAM DATE/TIME: 12/25/2017 01:50 [facility] COMPARISON: CHEST SINGLE AP, December 13, 2017, 17:33. INDICATIONS : Chest pain for 6 hours MEDICAL HISTORY : Cardiovascular disease. SURGICAL HISTORY : CABG. ENCOUNTER: Initial ACUITY: 1 day PAIN SCORE: 5/10 LOCATION: Bilateral chest FINDINGS: No infiltrate, effusion or pneumothorax. Mild chronic interstitial opacities of the bases again noted . Heart size stable, within normal limits. Patient has had previous median sternotomy and CABG. CONCLUSION: No evidence of acute cardiopulmonary disease. Ryan Hernández MD on December 25, 2017 at 2:03 Board Certified Radiologist. This report was verified electronically.
[2017-12-25 02:19] LABS: AUTOMATED NEUTROPHIL # 4.7 TH/MM3 (1.8-7.7); BASOPHIL % 0.5 % (0.0-2.0); EOSINOPHIL # 0.2 TH/MM3 (0-0.4); HEMATOCRIT 37.5 % (39.0-51.0); HEMOGLOBIN 12.2 GM/DL (13.0-17.0); LYMPH % 26.2 % (9.0-44.0); MEAN CELL VOLUME 87.3 FL (80.0-100.0); MEAN CORPUSCULAR HEMOGLOBIN 28.3 PG (27.0-34.0); MEAN CORPUSCULAR HGB CONC 32.4 % (32.0-36.0); MEAN PLATELET VOLUME 8.8 FL (7.0-11.0); MONO % 8.2 % (0.0-8.0); MONOCYTE # 0.6 TH/MM3 (0-0.9); NEUT % 63.1 % (16.0-70.0); PLATELET COUNT 104 TH/MM3 (150-450); RED CELL DISTRIBUTION WIDTH 13.3 % (11.6-17.2); WHITE BLOOD COUNT 7.5 TH/MM3 (4.0-11.0)
[2017-12-25 02:24] VITALS: BP 167/74; PULSE 69; RESP 16; O2SAT 96
[2017-12-25 02:28] LABS: BILIRUBIN, URINE NEG (NEG); BLOOD, URINE NEG (NEG); GLUCOSE,URINE 500 mg/dL (NEG); KETONE, URINE NEG (NEG); NITRITE,URINE NEG (NEG); URINE COLOR YELLOW (YELLW/STRAW); URINE LEUKOCYTE ESTERASE NEG (NEG)
[2017-12-25 02:29] LABS: CHLORIDE 103 MEQ/L (98-107); SODIUM (NA) 139 MEQ/L (136-145)
[2017-12-25 02:44] LABS: SQUAMOUS EPITHELIAL CELL URINE 0-5 /hpf (0-5); WBC, URINE 0-2 /hpf (0-5)
[2017-12-25 03:59] LABS: ALBUMIN 3.1 GM/DL (3.4-5.0); ALKALINE PHOSPHATASE 116 U/L (45-117); ALT (GPT) 38 U/L (12-78); AST (GOT) 23 U/L (15-37); BICARBONATE 28.1 MEQ/L (21.0-32.0); BLOOD UREA NITROGEN 24 MG/DL (7-18); GLOMERULAR FILTRATION RATE 52 ML/MIN (>89); GLUCOSE,RANDOM 244 MG/DL (74-106); TOTAL BILIRUBIN ADULT 0.5 MG/DL (0.2-1.0); TOTAL PROTEIN 6.8 GM/DL (6.4-8.2); TROPONIN I LESS THAN 0.02 NG/ML (0.02-0.05)
[2017-12-25 04:00] VITALS: BP 146/72; PULSE 67; RESP 14; O2SAT 99
[2017-12-25 05:15] VITALS: BP 147/60; PULSE 67; RESP 14; O2SAT 96
[2017-12-25 06:16] VITALS: BP 145/72
--- NOTE | 2017-12-25 19:43 | EKG ---
Date Performed: 12/25/2017 Time Performed: 01:22:21 PTAGE: 87 years EKG: Sinus rhythm WITH FIRST DEGREE AV BLOCK WITH FREQUENT VENTRICULAR PREMATURE COMPLEXES MODERATE INTRAVENTRICULAR C ONDUCTION DELAY ABNORMAL ECG Since the PREVIOUS TRACING , no significant change noted PREVIOUS TRACING 12/13/17 DOCTOR: Johnnie Wesley Interpretating Date/Time 12/25/2017 19:43:21
== END 2017-12-25 06:42 | disposition home or self-care (01) ==
LOC: PHED 01:11
DX: R07.89 Other chest pain (principal); I44.30 Unspecified atrioventricular block; R94.31 Abnormal electrocardiogram [ECG] [EKG]; F41.9 Anxiety disorder, unspecified; E78.00 Pure hypercholesterolemia, unspecified; E11.9 Type 2 diabetes mellitus without complications; I10 Essential (primary) hypertension; Z86.73 Personal history of transient ischemic attack (TIA), and cerebral infarction without residual deficits; Z79.02 Long term (current) use of antithrombotics/antiplatelets
CPT/HCPCS: 71045; 80053; 81001; 82550; 83690; 84484; 85025; 93005; 99285

== ENCOUNTER 2018-04-21 19:48 | Inpatient (IN) ==
[2018-04-21] MEDS ORDERED: Sod Chloride 0.9% Inj 1,000 ML IV.CONT SCH (20:00)
--- NOTE | 2018-04-21 20:01 | ED ---
HPI General Chief Complaint: Stroke Alert Stated Complaint: Stroke Time Seen by Provider: 04/21/18 19:50 Source: EMS Mode of arrival: EMS Limitations: other History of Present Illness HPI Narrative: Antelmo is an 87-year-old male, on Plavix, who presents with complaint of sudden onset right facial droop and right-sided paralysis that began sometime between 630 and 645 today. EMS reports blood sugar greater than 100 with a normal blood pressure. Patient's symptoms have not changed since onset. On patient arrival here he is unable to tell me any history and continuously repeats "I do not know I do not know I do not know." Onset (ago): hour(s) Location: right face, right arm and right leg Severity: severe Relieving factors: none Exacerbating factors: none Context: sudden onset On Anticoagulants: Yes Associated symptoms: confusion Related Data Home Medications Medication Instructions Recorded Confirmed amlodipine 2.5 mg PO DAILY 04/21/18 04/21/18 aspirin [Aspir-81] 81 mg PO DAILY 04/21/18 04/21/18 baclofen 5 mg PO Q8HR 04/21/18 04/21/18 clopidogrel 75 mg PO DAILY 04/21/18 04/21/18 famotidine 40 mg PO DAILY 04/21/18 04/21/18 glimepiride 4 mg PO BID 04/21/18 04/21/18 linagliptin [Tradjenta] 5 mg PO DAILY 04/21/18 04/21/18 metformin 500 mg PO BID 04/21/18 04/21/18 metoprolol succinate 25 mg PO DAILY 04/21/18 04/21/18 Allergies Allergy/AdvReac Type Severity Reaction Status Date / Time No Known Allergies Allergy Unknown Uncoded 12/25/17 01:49 Review of Systems ROS Unobtainable ROS Unobtainable: unobtainable due to mental status PMFSH Social History Social History Recent Travel in [facility] within the Last 8 Weeks: No Recent Out of Country Travel within the Last 8 Weeks: No Exam Narrative Exam Narrative: GENERAL: Well-appearing male in no acute distress SKIN: Focused skin assessment warm/dry. No rashes. HEAD: Atraumatic. Normocephalic. EYES: Pupils equal and round. No scleral icterus. No injection or drainage. ENT: No nasal bleeding or discharge. Mucous membranes pink and moist. NECK: Trachea midline. No JVD. CARDIOVASCULAR: Regular rate and rhythm. No murmur appreciated. RESPIRATORY: No accessory muscle use. Clear to auscultation. Breath sounds equal bilaterally. GASTROINTESTINAL: Abdomen soft, non-tender, nondistended. Hepatic and splenic margins not palpable. MUSCULOSKELETAL: No obvious deformities. No clubbing. No cyanosis. No edema. NEUROLOGICAL: Awake and alert but confused. Right-sided facial droop. Patient was not seen moving right-sided extremities. He did squeeze his left hand when instructed but is not following other commands. Appears to be neglecting his right side. PSYCHIATRIC: Unable to ascertain Course Reevaluation(s) Reevaluation #1: Patient is now moving his right-sided extremities. I spoke to Dr Huggins whom stated that tpa is thus not recommended. Time: 20:48 Initial Documented Vital Signs Temperature 98.8 F 04/21/18 19:50 Pulse Rate 86 04/21/18 19:50 Respiratory Rate 16 04/21/18 19:50 Blood Pressure 191/87 H 04/21/18 19:50 Pulse Oximetry 96 04/21/18 19:50 Last Documented Vital Signs Temperature 98.8 F 04/21/18 19:50 Pulse Rate 86 04/21/18 19:50 Respiratory Rate 16 04/21/18 19:50 Blood Pressure 191/87 H 04/21/18 19:50 Pulse Oximetry 92 L 04/21/18 21:02 NIH Stroke Scale NIH Stroke Scale Level of Consciousness: 0-Alert Orientation Questions: 2-Neither task correct Responds to Commands: 1-One task correct Gaze Eye Movement: 1-Partial gaze palsy Facial Movement: 3-Complete unilateral palsy Motor Functions Arm LEFT: 0-No drift Motor Functions Arm RIGHT: 3-No effort against gravity Motor Functions Leg RIGHT: 4-No movement Best Language: 2-Severe aphasia Articulation: 1-Mild dysarthia Total: 17 Medical Decision Making MDM Narrative Medical decision making narrative: Patient is an 87-year-old male who presents with an acute cerebrovascular accident. He had right-sided facial droop and was not moving his right side extremities on arrival. Shortly after arrival he no longer had a facial droop and was moving all 4 extremities. Patient kept trying to get up out of bed and was given many different medications to try and help his agitation so that further examination could be done. Labs were unremarkable. I spoke with Dr. Huggins, neurologist on-call, who agreed that the patient was not a candidate for TPA as he is improved. I then spoke with Dr. Correa, hospitalist on-call, whom agreed to the admission. Medical Screen Exam Complete: Yes Emergency Medical Condition: Yes Differential Diagnosis Differential Diagnosis: Differential diagnosis includes but is not limited to acute ischemic stroke, acute hemorrhagic stroke, electrolyte abnormality, metabolic disturbance. Medical Records Medical records reviewed: Yes I reviewed the patient's medical records. Lab Data Lab results reviewed: Yes I reviewed the patient's lab results. Result diagrams: 04/21/18 20:20 04/21/18 20:20 Lab Results 04/21/18 04/21/18 04/21/18 Range/Units 20:20 20:20 20:20 CBC w Diff Auto diff final WBC 8.6 (4.0-11.0) th/mm3 RBC 5.32 (4.50-5.90) mil/mm3 Hgb 15.4 (13.0-17.0) gm/dL Hct 45.1 (39.0-51.0) % MCV 84.8 (80.0-100.0) fL MCH 29.0 (27.0-34.0) pg MCHC 34.2 (32.0-36.0) % RDW 14.0 (11.6-17.2) % Plt Count 106 L (150-450) th/mm3 MPV 9.5 (7.0-11.0) fL Neut % (Auto) 61.7 (16.0-70.0) % Lymph % (Auto) 29.2 (9.0-44.0) % [place] % (Auto) 6.9 (0.0-8.0) % Eos % (Auto) 1.8 (0.0-4.0) % Baso % (Auto) 0.4 (0.0-2.0) % Neut # (Auto) 5.3 (1.8-7.7) th/mm3 Lymph # (Auto) 2.5 (1.0-4.8) th/mm3 [place] # (Auto) 0.6 (0.0-0.9) th/mm3 Eos # (Auto) 0.2 (0.0-0.4) th/mm3 Baso # (Auto) 0.0 (0.0-0.2) th/mm3 WBC Differential . Differential Comment . PT 10.2 (9.8-11.6) sec INR 1.0 Ratio APTT 24.0 L (24.3-30.1) sec Sodium 133 L (136-145) meq/L Potassium 5.5 H (3.5-5.1) meq/L Chloride 100 (98-107) meq/L Carbon Dioxide 24.4 (21.0-32.0) meq/L Anion Gap 9 (5-15) meq/L BUN 21 H (7-18) mg/dL Creatinine 1.50 H (0.60-1.30) mg/dL Estimated GFR 44 L (>89) mL/min POC Glucose (68-110) mg/dl Random Glucose 232 H (74-106) mg/dL Calcium 9.0 (8.5-10.1) mg/dL Total Creatine Kinase 140 (39-308) U/L CK-MB (CK-2) 2.0 (0.5-3.6) ng/mL Troponin I Less than 0.02 L (0.02-0.05) ng/mL 04/21/18 Range/Units 20:35 CBC w Diff WBC (4.0-11.0) th/mm3 RBC (4.50-5.90) mil/mm3 Hgb (13.0-17.0) gm/dL Hct (39.0-51.0) % MCV (80.0-100.0) fL MCH (27.0-34.0) pg MCHC (32.0-36.0) % RDW (11.6-17.2) % Plt Count (150-450) th/mm3 MPV (7.0-11.0) fL Neut % (Auto) (16.0-70.0) % Lymph % (Auto) (9.0-44.0) % [place] % (Auto) (0.0-8.0) % Eos % (Auto) (0.0-4.0) % Baso % (Auto) (0.0-2.0) % Neut # (Auto) (1.8-7.7) th/mm3 Lymph # (Auto) (1.0-4.8) th/mm3 [place] # (Auto) (0.0-0.9) th/mm3 Eos # (Auto) (0.0-0.4) th/mm3 Baso # (Auto) (0.0-0.2) th/mm3 WBC Differential Differential Comment PT (9.8-11.6) sec INR Ratio APTT (24.3-30.1) sec Sodium (136-145) meq/L Potassium (3.5-5.1) meq/L Chloride (98-107) meq/L Carbon Dioxide (21.0-32.0) meq/L Anion Gap (5-15) meq/L BUN (7-18) mg/dL Creatinine (0.60-1.30) mg/dL Estimated GFR (>89) mL/min POC Glucose 229 H (68-110) mg/dl Random Glucose (74-106) mg/dL Calcium (8.5-10.1) mg/dL Total Creatine Kinase (39-308) U/L CK-MB (CK-2) (0.5-3.6) ng/mL Troponin I (0.02-0.05) ng/mL Imaging Data Attestation: I personally reviewed and interpreted this imaging study as follows : Radiologist's impression: Head CT 04/21/18 19:50 CONCLUSION: 1. Diffuse cerebral atrophy. 2. No acute infarct, acute hemorrhage, midline shift or extra-axial fluid collections. * Report was called by Dr. Zimmerman to Dr. Hwang at 8:15 PM on 04/21/2018. ECG Data EKG Prior to Arrival: No Attestation: I personally reviewed and interpreted this ECG as follows: (Paced rhythm at a rate of [address] or T-wave changes that meet sgarbossa's criteria.) Discharge Plan Discharge Disposition Patient Disposition: 30 Still Patient Discharge Condition Condition: Stable Discharge Details Diagnosis: Transient cerebral ischemia Physicians Team ED Provider: Kaitlyn Hwang Primary Care Provider: Raymon Crenshaw Attending Provider: Fidelina Correa Status ED Status: Admitted Observation Patient
--- NOTE | 2018-04-21 20:17 | CT ---
EXAM DATE: 04/21/2018 8:12 PM EDT AGE/SEX: 87 years / Male INDICATIONS: Stroke alert. Altered mental status. CLINICAL DATA: This is the patient's initial encounter. Patient reports that signs and symptoms have been present for 1 day and indicates a pain score of Nonresponsive. MEDICAL/SURGICAL HISTORY: Non-responsive. Non-responsive. RADIATION DOSE: 51.34 CTDI (mGy) COMPARISON: Previous CT of the brain dated 12/05/2017. TECHNIQUE: CT of the head without contrast. Using automated exposure control and adjustment of the mA and/or kV according to patient size, radiation dose was kept as low as reasonably achievable to ob tain optimal diagnostic quality images. DICOM format image data is available electronically for revi ew and comparison. FINDINGS: Cerebrum: Diffuse cerebral atrophy is noted. No evidence of midline shift, mass lesion, hemorrhage o r acute infarction. No extraaxial fluid collections are seen. Posterior Fossa: The cerebellum and brainstem are intact. The 4th ventricle is midline. The cerebe llopontine angle is unremarkable. Extracranial: The visualized portion of the orbits is intact. Skull: The calvaria is intact. No evidence of skull fracture. CONCLUSION: 1. Diffuse cerebral atrophy. 2. No acute infarct, acute hemorrhage, midline shift or extra-axial fluid collections. * Report was called by Dr. Zimmerman to Dr. Hwang at 8:15 PM on 04/21/2018. Electronically signed by: Eduardo Zimmerman MD 04/21/2018 8:16 PM EDT
[2018-04-21 20:30] LABS: Baso % (Auto) 0.4 % (0.0-2.0); Eos # (Auto) 0.2 th/mm3 (0.0-0.4); Eos % (Auto) 1.8 % (0.0-4.0); Hematocrit 45.1 % (39.0-51.0); Hemoglobin 15.4 gm/dL (13.0-17.0); Lymph # (Auto) 2.5 th/mm3 (1.0-4.8); Lymph % (Auto) 29.2 % (9.0-44.0); Mean Corpuscular HGB Conc 34.2 % (32.0-36.0); Mean Corpuscular Volume 84.8 fL (80.0-100.0); Mean Platelet Volume 9.5 fL (7.0-11.0); Mono # (Auto) 0.6 th/mm3 (0.0-0.9); Mono % (Auto) 6.9 % (0.0-8.0); Neut # (Auto) 5.3 th/mm3 (1.8-7.7); Neut % (Auto) 61.7 % (16.0-70.0); Platelet Count 106 th/mm3 (150-450); Red Blood Count 5.32 mil/mm3 (4.50-5.90); White Blood Count 8.6 th/mm3 (4.0-11.0)
[2018-04-21 20:35] LABS: Chloride 100 meq/L (98-107); Sodium 133 meq/L (136-145)
[2018-04-21 20:37] LABS: Potassium 5.5 meq/L (3.5-5.1)
[2018-04-21 20:38] LABS: Anion Gap 9 meq/L (5-15); Blood Urea Nitrogen 21 mg/dL (7-18); Carbon Dioxide 24.4 meq/L (21.0-32.0); Glucose,Random 232 mg/dL (74-106)
[2018-04-21 20:41] LABS: Prothrombin Time 10.2 sec (9.8-11.6)
[2018-04-21 20:42] LABS: Glomerular Filtration Rate 44 mL/min (>89)
[2018-04-21 20:45] LABS: Creatine Kinase 140 U/L (39-308)
[2018-04-21] MEDS ORDERED: Haloperidol Inj 5 MG/ML Ampul IM ONE (21:09)
[2018-04-21] MEDS ORDERED: Dextrose 50% in Water 50 ML Vial IV.PUSH PRN (21:45)
[2018-04-22] MEDS: Sod Chloride 0.9% Inj 1,000 ML IV.CONT SCH ×2 (01:22→18:17)
[2018-04-22] MEDS: Insulin NovoLOG Aspart Correctional Sugar Inj SQ SCH ×5 (04:05→22:16)
--- NOTE | 2018-04-22 09:33 | US ---
EXAM DATE: 04/22/2018 9:19 AM EDT AGE/SEX: 87 years / Male INDICATIONS: Right facial droop and right side paralysis. CLINICAL DATA: This is the patient's initial encounter. Patient reports that signs and symptoms have been present for 1 day and indicates a pain score of Nonresponsive. MEDICAL/SURGICAL HISTORY: Non-responsive. Non-responsive. COMPARISON: [facility], US CAROTID ARTERIES, 12/14/2017. . VELOCITY PARAMETERS: ICA/CCA Ratio: Right 2.3 , Left 0.7 ICA: Right 97 cm/sec, Left 93 cm/sec CCA: Right 42 cm/sec, Left 140 cm/sec ECA: Right 49 cm/sec, Left 128 cm/sec Vertebral: Right 31 cm/sec antegrade, Left 62 cm/sec antegrade FINDINGS: Right Carotid: Partially calcified atheromatous plaque involving the carotid bulb and proximal ICA. The ICA component is fairly heavily calcified generating shadowing which limits the Huber scale analys is..The waveforms are within normal limits. Left Carotid: Mild arteriosclerotic plaque is visualized scattered throughout the common carotid and proximal ICA. No luminal narrowing by grayscale analysis.. The waveforms are within normal limits. Other: None. CONCLUSION: 1. Right Internal Carotid Artery: Partially calcified atheromatous plaque with 50-69% stenosis of t he proximal ICA. 2. Left Internal Carotid Artery: Mild plaque without stenosis. 3. There is a relative reduction in velocity involving the right common carotid artery when compared to the left side raising concern for proximal brachiocephalic artery or common carotid artery origin stenosis. CTA of the carotid arteries would be beneficial to further assess this region. Electronically signed by: Chadd Vinson MD 04/22/2018 9:32 AM EDT
--- NOTE | 2018-04-22 10:05 | ECG ---
Date Performed: 04/21/2018 Time Performed: 21:36:22 PTAGE: 87 years EKG: SINUS TACHYCARDIA WITH OCCASIONAL VENTRICULAR PREMATURE COMPLEXES MODERATE INTRAVENTRICULAR CONDUCTION DELAY NONSPECIFIC ST & T-WAVE ABNORMALITY ABNORMAL ECG PREVIOUS TRACING : 04/21/2018 20.47 DOCTOR: Donn Ya Interpretating Date/Time 04/22/2018 10:04:15
[2018-04-22 10:47] LABS: Chol/HDL Ratio 4.64 Ratio; HDL Cholesterol 39.4 mg/dL (40.0-60.0)
--- NOTE | 2018-04-22 13:11 | ECG ---
Date Performed: 04/21/2018 Time Performed: 20:10:45 PTAGE: 87 years EKG: Sinus rhythm WITH FIRST DEGREE AV BLOCK WITH FREQUENT VENTRICULAR PREMATURE COMPLEXES LEFT VENTRICULAR HYPERTROPH Y AND ST-T CHANGE ABNORMAL ECG PREVIOUS TRACING : 12/25/2017 01.22 DOCTOR: Donn Ya Interpretating Date/Time 04/23/2018 06:47:43
--- NOTE | 2018-04-22 14:55 | ECHRPT ---
Indication: CVA/TIA CONCLUSIONS The left ventricular systolic function is severely reduced with an estimated ejection fraction in th e range of 30-35%. Normal left ventricular size. Wall thickness is normal. There is global left ventricular dysfunction. Diffuse calcification of the aortic valve. Moderate aortic valve stenosis. Aortic valve area is 0.79 cm. Aortic valve mean gradient is 18.8 mmHg. Mild aortic valve regurgitation. BP: / HR: Rhythm: Sinus MEASUREMENTS (Male / Female) Normal Values Technical Quality:Fair 2D ECHO LV Diastolic Diameter PLAX 4.8 cm 4.2 - 5.9 / 3.9 - 5.3 cm LV Systolic Diameter PLAX 4.1 cm IVS Diastolic Thickness 1.0 cm 0.6 - 1.0 / 0.6 - 0.9 cm LVPW Diastolic Thickness 1.0 cm 0.6 - 1.0 / 0.6 - 0.9 cm LV Relative Wall Thickness 0.4 LVOT Diameter 1.9 cm LA Systolic Diameter LX 3.3 cm 3.0 - 4.0 / 2.7 - 3.8 cm LV Ejection Fraction MOD 4C 37.0 % LV Ejection Fraction 4C AL 36.4 % M-MODE Aortic Root Diameter MM 1.9 cm AV Cusp Separation MM 1.3 cm DOPPLER AV Peak Velocity 301.3 cm/s AV Peak Gradient 36.3 mmHg AV Mean Gradient 18.7 mmHg AV Velocity Time Integral 56.1 cm AI Peak Velocity 278.5 cm/s AI Peak Gradient 31.0 mmHg AI Pressure Half Time 587.0 ms LVOT Peak Velocity 91.7 cm/s LVOT Peak Gradient 3.4 mmHg LVOT Velocity Time Integral 15.6 cm AV Area Cont Eq vti 0.8 cm AV Area Cont Eq pk 0.9 cm MV Area PHT 7.3 cm TR Peak Velocity 214.0 cm/s TR Peak Gradient 18.3 mmHg Right Atrial Pressure 10.0 mmHg Pulmonary Artery Systolic Pressu 28.3 mmHg Right Ventricular Systolic Press 28.3 mmHg PV Peak Velocity 125.0 cm/s PV Peak Gradient 6.3 mmHg FINDINGS LEFT VENTRICLE The left ventricular systolic function is severely reduced with an estimated ejection fraction in th e range of 30-35%. Normal left ventricular size. Wall thickness is normal. There is global left ventricular dysfunction. RIGHT VENTRICLE Normal right ventricular size and systolic function. LEFT ATRIUM The left atrial size is normal. RIGHT ATRIUM The right atrial size is normal. ATRIAL SEPTUM Normal atrial septal thickness without atrial level shunting by limited color doppler interrogation. AORTA The aortic root and proximal ascending aorta are normal in size on limited imaging. MITRAL VALVE Structurally normal mitral valve. No mitral valve stenosis or regurgitation. AORTIC VALVE Trileaflet aortic valve. Diffuse calcification of the aortic valve. Moderate aortic valve stenosis. Aortic valve area is 0.79 cm. Aortic valve mean gradient is 18.8 mmHg. Mild aortic valve regurgitation. TRICUSPID VALVE Structurally normal tricuspid valve. No tricuspid valve stenosis or regurgitation. PULMONARY VALVE No pulmonary valve regurgitation or stenosis. VESSELS The inferior vena cava is normal in size. PERICARDIUM No pericardial effusion. Jez Gonzales MD, FACC, FSCAI (Electronically Signed) Final Date:22 April 2018 14:54
[2018-04-22 16:04] LABS: Hemoglobin A1c 8.7 % (4.3-6.0)
--- NOTE | 2018-04-22 16:42 | P.CONNEU ---
History of Present Illness Service: Neurology Primary Care Provider: Raymon Crenshaw MD Family Provider: Raymon Crenshaw MD Chief Complaint: Possible stroke History of Present Illness: 87-year-old male with a history of dementia lives at local custodial full care and history of sundowning admitted for confusion and weakness. Son at bedside states is about the third or fourth episode he has had in the past several months. His history of carotid endarterectomy and CABG. Patient is a poor historian at present. No known history of seizures. ER physician has spoken to my partner regarding stroke alert. Is felt that the patient was not a candidate for IV TPA as his symptoms of weakness and facial droop had resolved. He also was a difficult exam due to restlessness. Review of Systems All other systems reviewed negative except as stated in HPI PMFSH - History History Provided By: Family Member - Tobacco History Second Hand Smoke Exposure: No Tobacco Use In Past 30 Days: No Smoking Status: Former smoker - Alcohol History How Often Do You Have a Drink Containing Alcohol: Never - Substance Use History Substance History: No History of Abuse - Travel History Recent Travel in the [place] Within the Last 8 Weeks: No Recent Travel Out of the Country Within the Last 8 Weeks: No - Immunization History Tetanus Immunization: <5 Years Hx Influenza Vaccine This Season: Yes Medications and Allergies Active Medications: Active Medications Dextrose (D50w Vial) 50 ml IV.PUSH UNSCH PRN PRN Reason: PER HYPOGLYCEMIA PROTOCOL Glucagon (Glucagon Inj) 1 mg OTHER PRN PRN PRN Reason: for Hypoglycemia Protocol Sodium Chloride (Ns Inj) 1,000 mls @ 70 mls/hr IV.CONT .[id number] [facility] Last Admin: 04/22/18 01:22 Dose: 70 mls/hr Insulin Aspart (Novolog Insulin Correctional Sugar Inj) 0 unit SQ ACHS AND 3AM KIMMIE; Protocol Last Admin: 04/22/18 11:43 Dose: 3 unit Sodium Chloride (Ns Flush) 2 ml IV.FLUSH PRN PRN PRN Reason: FLUSH AFTER USING IV ACCESS Allergies Allergy/AdvReac Type Severity Reaction Status Date / Time No Known Allergies Allergy Unknown Uncoded 12/25/17 01:49 Home Medications Medication Instructions Recorded Confirmed Type amlodipine 2.5 mg PO DAILY 04/21/18 04/21/18 History aspirin [Aspir-81] 81 mg PO DAILY 04/21/18 04/21/18 History baclofen 5 mg PO Q8HR 04/21/18 04/21/18 History clopidogrel 75 mg PO DAILY 04/21/18 04/21/18 History famotidine 40 mg PO DAILY 04/21/18 04/21/18 History glimepiride 4 mg PO BID 04/21/18 04/21/18 History linagliptin [Tradjenta] 5 mg PO DAILY 04/21/18 04/21/18 History metformin 500 mg PO BID 04/21/18 04/21/18 History metoprolol succinate 25 mg PO DAILY 04/21/18 04/21/18 History Exam Vital signs: Vital Signs 04/21/18 19:50 04/21/18 21:02 04/22/18 00:05 Temperature 98.8 F Pulse Rate 86 119 H Respiratory Rate 16 15 Blood Pressure 191/87 H 140/98 H Pulse Oximetry 97 92 L 100 04/22/18 00:10 04/22/18 00:22 04/22/18 00:55 Temperature Pulse Rate 112 H 120 H Respiratory Rate 24 26 H Blood Pressure 140/70 164/86 H Pulse Oximetry 96 04/22/18 01:00 04/22/18 01:45 04/22/18 02:10 Temperature 97.8 F Pulse Rate 112 H 110 H 118 H Respiratory Rate 26 H 25 H Blood Pressure 171/86 H 162/96 H Pulse Oximetry 91 L 96 04/22/18 03:10 04/22/18 04:00 04/22/18 05:00 Temperature 98.4 F Pulse Rate 120 H 114 H 118 H Respiratory Rate 26 H 23 27 H Blood Pressure 178/84 H 140/72 149/76 H Pulse Oximetry 04/22/18 06:00 04/22/18 08:09 Temperature Pulse Rate 106 H Respiratory Rate 25 H Blood Pressure 149/79 H Pulse Oximetry 95 Intake & Output 04/21/18 04/22/18 04/22/18 18:59 06:59 18:59 Weight 73 kg Other: # Incontinent Voids 4 Narrative: GENERAL: in NAD, SKIN: Warm and dry. HEAD: Atraumatic. Normocephalic. EYES: Pupils equal and round. No scleral icterus. ENT: No nasal bleeding or discharge. Mucous membranes pink and moist. NECK: Trachea midline. No JVD. CARDIOVASCULAR: Regular rate and rhythm. RESPIRATORY: No accessory muscle use. Clear to auscultation. Breath sounds equal bilaterally. GASTROINTESTINAL: Abdomen soft, non-tender, nondistended. MUSCULOSKELETAL: Extremities without clubbing, cyanosis, or edema. No obvious deformities. NEUROLOGICAL mildly somnolent,. Arouses, oriented to self only, thought his son was his , disfluency dysphonic speech, slightly reduced left nasolabial fold, blink to threat roughly intact all 4 quadrants, no tremulousness noted no nuchal rigidity, is in four-point restraint but able to follow and show me 2 fingers of both upper extremities able raise him to gravity tone normal in all 4 limbs, msr 1-2+ sym, no clonus, planterflexor, sensory examination gaits although testing limited secondary to mental status weakness PSYCHIATRIC: Mildly somnolent - Constitutional no acute distress - Routine HEENT Exam Head: Present: normocephalic Eye: Present: EOMI Results - Labs CBC & Chem 7: 04/21/18 20:20 04/21/18 20:20 Labs: Laboratory Results - last 24 hr 04/21/18 04/21/18 04/21/18 20:20 20:20 20:20 CBC w Diff Auto diff final WBC 8.6 RBC 5.32 Hgb 15.4 Hct 45.1 MCV 84.8 MCH 29.0 MCHC 34.2 RDW 14.0 Plt Count 106 L MPV 9.5 Neut % (Auto) 61.7 Lymph % (Auto) 29.2 [place] % (Auto) 6.9 Eos % (Auto) 1.8 Baso % (Auto) 0.4 Neut # (Auto) 5.3 Lymph # (Auto) 2.5 [place] # (Auto) 0.6 Eos # (Auto) 0.2 Baso # (Auto) 0.0 WBC Differential . Differential Comment . PT 10.2 INR 1.0 APTT 24.0 L Sodium 133 L Potassium 5.5 H Chloride 100 Carbon Dioxide 24.4 Anion Gap 9 BUN 21 H Creatinine 1.50 H Estimated GFR 44 L POC Glucose Random Glucose 232 H Calcium 9.0 Total Creatine Kinase 140 CK-MB (CK-2) 2.0 Troponin I Less than 0.02 L Triglycerides Cholesterol LDL Cholesterol, Calc HDL Cholesterol Cholesterol/HDL Ratio 04/21/18 04/22/18 04/22/18 20:35 03:10 07:43 CBC w Diff WBC RBC Hgb Hct MCV MCH MCHC RDW Plt Count MPV Neut % (Auto) Lymph % (Auto) [place] % (Auto) Eos % (Auto) Baso % (Auto) Neut # (Auto) Lymph # (Auto) [place] # (Auto) Eos # (Auto) Baso # (Auto) WBC Differential Differential Comment PT INR APTT Sodium Potassium Chloride Carbon Dioxide Anion Gap BUN Creatinine Estimated GFR POC Glucose 229 H 352 H Random Glucose Calcium Total Creatine Kinase CK-MB (CK-2) Troponin I Triglycerides 200 H Cholesterol 183 LDL Cholesterol, Calc 104 H HDL Cholesterol 39.4 L Cholesterol/HDL Ratio 4.64 04/22/18 04/22/18 08:56 13:03 CBC w Diff WBC RBC Hgb Hct MCV MCH MCHC RDW Plt Count MPV Neut % (Auto) Lymph % (Auto) [place] % (Auto) Eos % (Auto) Baso % (Auto) Neut # (Auto) Lymph # (Auto) [place] # (Auto) Eos # (Auto) Baso # (Auto) WBC Differential Differential Comment PT INR APTT Sodium Potassium Chloride Carbon Dioxide Anion Gap BUN Creatinine Estimated GFR POC Glucose 244 H 229 H Random Glucose Calcium Total Creatine Kinase CK-MB (CK-2) Troponin I Triglycerides Cholesterol LDL Cholesterol, Calc HDL Cholesterol Cholesterol/HDL Ratio - Imaging Impressions Head CT 04/21/18 19:50 CONCLUSION: 1. Diffuse cerebral atrophy. 2. No acute infarct, acute hemorrhage, midline shift or extra-axial fluid collections. * Report was called by Dr. Zimmerman to Dr. Hwang at 8:15 PM on 04/21/2018. Carotid Doppler Study 04/22/18 00:00 CONCLUSION: 1. Right Internal Carotid Artery: Partially calcified atheromatous plaque with 50-69% stenosis of the proximal ICA. 2. Left Internal Carotid Artery: Mild plaque without stenosis. 3. There is a relative reduction in velocity involving the right common carotid artery when compared to the left side raising concern for proximal brachiocephalic artery or common carotid artery origin stenosis. CTA of the carotid arteries would be beneficial to further assess this region. Review/Management - Diagnosis (1) Dementia Code(s): F03.90 - Unspecified dementia without behavioral disturbance Status: Acute Current Visit: Yes (2) Coronary disease Code(s): I25.10 - Atherosclerotic heart disease of [place] coronary artery without angina pectoris Status: Acute Current Visit: Yes (3) Transient cerebral ischemia Code(s): G45.9 - Transient cerebral ischemic attack, unspecified Status: Acute Current Visit: Yes (4) Cardiomyopathy Code(s): I42.9 - Cardiomyopathy, unspecified Status: Acute Current Visit: Yes - Review/Management Plan: Episode may have been resolving TIA versus complex partial seizure versus a cardiac arrhythmia Recent echo shows reduction in his ejection fraction 50% down to 30% with global reduced left ventricular function in addition to calcified aortic valve Seen by neurology November 2017 felt to have TIA was started on aspirin and Plavix Recommendations Could consider follow-up CTA brain carotids based on ultrasound report on not certain as a cause of his symptoms EEG Would also suggest upgrading him to Coumadin as he is failed aspirin and Plavix if this was a TIA as he is at high risk for cardioembolic event with his depressed ejection fraction and apical thrombus formation Could consider cardiac evaluation as well Physical therapy evaluation Discussed with medical. Discussed patient's son at bedside. Patient is over all elderly with advanced dementia in addition to advanced cardiac disease some point palliative care may need to be considered (3) Transient cerebral ischemia Qualifiers: Transient cerebral ischemia type: unspecified Qualified Code(s): G45.9 - Transient cerebral ischemic attack, unspecified
--- NOTE | 2018-04-22 17:47 | P.HP ---
History of Present Illness Service: Hospitalist Primary Care Physician: Raymon Crenshaw MD Chief Complaint: Possible stroke History of Present Illness: Mr. Contreras is a pleasant 87 year old male with a history of previous CVAs, currently on Plavix who was brought to the hospital due to lower extremity weakness, confusion. Patient's son is at bedside and does not know if patient had any unilateral weakness or speech difficulty. Patient's son feel that patient is now at his baseline. No chest pain, shortness of breath, fever, chills. No changes in bowel or bladder habits. Past medical history: Previous CVAs, DM, hypertensions. Past surgical history: Mo major Family history: No family history of Alzheimer's or Parkinson's. Social history: Does not use tobacco, alcohol or illicit drugs. Review of Systems All other systems reviewed negative except as stated in HPI PMFSH - History History Provided By: Family Member - Tobacco History Second Hand Smoke Exposure: No Tobacco Use In Past 30 Days: No Smoking Status: Former smoker - Alcohol History How Often Do You Have a Drink Containing Alcohol: Never - Substance Use History Substance History: No History of Abuse - Travel History Recent Travel in the [facility] Within the Last 8 Weeks: No Recent Travel Out of the Country Within the Last 8 Weeks: No - Immunization History Tetanus Immunization: <5 Years Hx Influenza Vaccine This Season: Yes Medications and Allergies Active Medications: Active Medications Dextrose (D50w Vial) 50 ml IV.PUSH UNSCH PRN PRN Reason: PER HYPOGLYCEMIA PROTOCOL Glucagon (Glucagon Inj) 1 mg OTHER PRN PRN PRN Reason: for Hypoglycemia Protocol Sodium Chloride (Ns Inj) 1,000 mls @ 70 mls/hr IV.CONT .[id number] KIMMIE Last Admin: 04/22/18 01:22 Dose: 70 mls/hr Insulin Aspart (Novolog Insulin Correctional Sugar Inj) 0 unit SQ ACHS AND 3AM KIMMIE; Protocol Last Admin: 04/22/18 11:43 Dose: 3 unit Sodium Chloride (Ns Flush) 2 ml IV.FLUSH PRN PRN PRN Reason: FLUSH AFTER USING IV ACCESS Allergies Allergy/AdvReac Type Severity Reaction Status Date / Time No Known Allergies Allergy Unknown Uncoded 12/25/17 01:49 Home Medications Medication Instructions Recorded Confirmed Type amlodipine 2.5 mg PO DAILY 04/21/18 04/21/18 History aspirin [Aspir-81] 81 mg PO DAILY 04/21/18 04/21/18 History baclofen 5 mg PO Q8HR 04/21/18 04/21/18 History clopidogrel 75 mg PO DAILY 04/21/18 04/21/18 History famotidine 40 mg PO DAILY 04/21/18 04/21/18 History glimepiride 4 mg PO BID 04/21/18 04/21/18 History linagliptin [Tradjenta] 5 mg PO DAILY 04/21/18 04/21/18 History metformin 500 mg PO BID 04/21/18 04/21/18 History metoprolol succinate 25 mg PO DAILY 04/21/18 04/21/18 History Exam Vital signs: Vital Signs 04/21/18 19:50 04/21/18 21:02 04/22/18 00:05 Temperature 98.8 F Pulse Rate 86 119 H Respiratory Rate 16 15 Blood Pressure 191/87 H 140/98 H Pulse Oximetry 97 92 L 100 04/22/18 00:10 04/22/18 00:22 04/22/18 00:55 Temperature Pulse Rate 112 H 120 H Respiratory Rate 24 26 H Blood Pressure 140/70 164/86 H Pulse Oximetry 96 04/22/18 01:00 04/22/18 01:45 04/22/18 02:10 Temperature 97.8 F Pulse Rate 112 H 110 H 118 H Respiratory Rate 26 H 25 H Blood Pressure 171/86 H 162/96 H Pulse Oximetry 91 L 96 04/22/18 03:10 04/22/18 04:00 04/22/18 05:00 Temperature 98.4 F Pulse Rate 120 H 114 H 118 H Respiratory Rate 26 H 23 27 H Blood Pressure 178/84 H 140/72 149/76 H Pulse Oximetry 04/22/18 06:00 04/22/18 08:09 Temperature Pulse Rate 106 H Respiratory Rate 25 H Blood Pressure 149/79 H Pulse Oximetry 95 Intake & Output 04/21/18 04/22/18 04/22/18 18:59 06:59 18:59 Weight 73 kg Other: # Incontinent Voids 4 Narrative: GENERAL: This is a well-nourished, well-developed patient, in no apparent distress. Appears somewhat lethargic. SKIN: No rashes, ecchymoses or lesions. Warm and dry. HEAD: Atraumatic. Normocephalic. No temporal or scalp tenderness. EYES: Pupils equal round and reactive. No injection or drainage. ENT: Nose without bleeding, purulent drainage or septal hematoma. Airway patent. NECK: Trachea midline. No lymphadenopathy. Supple, nontender, no meningeal signs. CARDIOVASCULAR: Regular rate and rhythm without murmurs, gallops, or rubs. No JVD. RESPIRATORY: Clear to auscultation. Breath sounds equal bilaterally. No wheezes , rales, or rhonchi. GASTROINTESTINAL: Abdomen soft, non-tender, nondistended. No guarding. MUSCULOSKELETAL: Extremities without clubbing, cyanosis, or edema. Strength symmetric. NEUROLOGICAL: Awake and alert. Cranial nerves II through XII intact. No focal neurological deficits. Does not talk much. No facial asymmetry note. Results - Labs CBC & Chem 7: 04/21/18 20:20 04/21/18 20:20 Labs: Laboratory Results - last 24 hr 04/21/18 04/21/18 04/21/18 20:20 20:20 20:20 CBC w Diff Auto diff final WBC 8.6 RBC 5.32 Hgb 15.4 Hct 45.1 MCV 84.8 MCH 29.0 MCHC 34.2 RDW 14.0 Plt Count 106 L MPV 9.5 Neut % (Auto) 61.7 Lymph % (Auto) 29.2 [place] % (Auto) 6.9 Eos % (Auto) 1.8 Baso % (Auto) 0.4 Neut # (Auto) 5.3 Lymph # (Auto) 2.5 [place] # (Auto) 0.6 Eos # (Auto) 0.2 Baso # (Auto) 0.0 WBC Differential . Differential Comment . PT 10.2 INR 1.0 APTT 24.0 L Sodium 133 L Potassium 5.5 H Chloride 100 Carbon Dioxide 24.4 Anion Gap 9 BUN 21 H Creatinine 1.50 H Estimated GFR 44 L POC Glucose Random Glucose 232 H Hemoglobin A1c Calcium 9.0 Total Creatine Kinase 140 CK-MB (CK-2) 2.0 Troponin I Less than 0.02 L Triglycerides Cholesterol LDL Cholesterol, Calc HDL Cholesterol Cholesterol/HDL Ratio 04/21/18 04/22/18 04/22/18 20:35 03:10 07:43 CBC w Diff WBC RBC Hgb Hct MCV MCH MCHC RDW Plt Count MPV Neut % (Auto) Lymph % (Auto) [place] % (Auto) Eos % (Auto) Baso % (Auto) Neut # (Auto) Lymph # (Auto) [place] # (Auto) Eos # (Auto) Baso # (Auto) WBC Differential Differential Comment PT INR APTT Sodium Potassium Chloride Carbon Dioxide Anion Gap BUN Creatinine Estimated GFR POC Glucose 229 H 352 H Random Glucose Hemoglobin A1c 8.7 H Calcium Total Creatine Kinase CK-MB (CK-2) Troponin I Triglycerides Cholesterol LDL Cholesterol, Calc HDL Cholesterol Cholesterol/HDL Ratio 04/22/18 04/22/18 04/22/18 07:43 08:56 13:03 CBC w Diff WBC RBC Hgb Hct MCV MCH MCHC RDW Plt Count MPV Neut % (Auto) Lymph % (Auto) [place] % (Auto) Eos % (Auto) Baso % (Auto) Neut # (Auto) Lymph # (Auto) [place] # (Auto) Eos # (Auto) Baso # (Auto) WBC Differential Differential Comment PT INR APTT Sodium Potassium Chloride Carbon Dioxide Anion Gap BUN Creatinine Estimated GFR POC Glucose 244 H 229 H Random Glucose Hemoglobin A1c Calcium Total Creatine Kinase CK-MB (CK-2) Troponin I Triglycerides 200 H Cholesterol 183 LDL Cholesterol, Calc 104 H HDL Cholesterol 39.4 L Cholesterol/HDL Ratio 4.64 - Imaging Impressions Head CT 04/21/18 19:50 CONCLUSION: 1. Diffuse cerebral atrophy. 2. No acute infarct, acute hemorrhage, midline shift or extra-axial fluid collections. * Report was called by Dr. Zimmerman to Dr. Hwang at 8:15 PM on 04/21/2018. Carotid Doppler Study 04/22/18 00:00 CONCLUSION: 1. Right Internal Carotid Artery: Partially calcified atheromatous plaque with 50-69% stenosis of the proximal ICA. 2. Left Internal Carotid Artery: Mild plaque without stenosis. 3. There is a relative reduction in velocity involving the right common carotid artery when compared to the left side raising concern for proximal brachiocephalic artery or common carotid artery origin stenosis. CTA of the carotid arteries would be beneficial to further assess this region. Caprini VTE Risk Assessment Caprini VTE Risk Assessment: Moderate/High Risk (score >= 2) Caprini Risk Assessment Model: Point Value = 1 Point Value = 2 Point Value = 3 Point Value = 5 Age 41-60 Minor surgery BMI > 25 kg/m2 Swollen legs Varicose veins or History of unexplained or recurrent spontaneous Oral contraceptives or hormone replacement Sepsis (< 1 month) Serious lung disease, including pneumonia (< 1 month) Abnormal pulmonary function Acute myocardial infarction Congestive heart failure (< 1 month) History of inflammatory bowel disease Medical patient at bed rest Age 61-74 Arthroscopic surgery Major open surgery (> 45 min) Laparoscopic surgery (> 45 min) Malignancy Confined to bed (> 72 hours) Immobilizing plaster cast Central venous access Age >= 75 History of VTE Family history of VTE Factor V Leiden Prothrombin [id number] Lupus anticoagulant Anticardiolipin antibodies Elevated serum homocysteine Heparin-induced thrombocytopenia Other congenital or acquired thrombophilia Stroke (< 1 month) Elective arthroplasty Hip, pelvis, or leg fracture Acute spinal cord injury (< 1 month) Prophylaxis Regimen: Total Risk Factor Score Risk Level Prophylaxis Regimen 0-1 Low Early ambulation 2 Moderate Order ONE of the following: *Sequential Compression Device (SCD) *Heparin 5000 units SQ BID 3-4 Higher Order ONE of the following medications: *Heparin 5000 units SQ TID *Enoxaparin/Lovenox 40 mg SQ daily (WT < 150 kg, CrCl > 30 mL/min) *Enoxaparin/Lovenox 30 mg SQ daily (WT < 150 kg, CrCl > 10-29 mL/min) *Enoxaparin/Lovenox 30 mg SQ BID (WT < 150 kg, CrCl > 30 mL/min) AND/OR *Sequential Compression Device (SCD) 5 or more Highest Order ONE of the following medications: *Heparin 5000 units SQ TID (Preferred with Epidurals) *Enoxaparin/Lovenox 40 mg SQ daily (WT < 150 kg, CrCl > 30 mL/min) *Enoxaparin/Lovenox 30 mg SQ daily (WT < 150 kg, CrCl > 10-29 mL/min) *Enoxaparin/Lovenox 30 mg SQ BID (WT < 150 kg, CrCl > 30 mL/min) AND *Sequential Compression Device (SCD) Assessment and Plan - Plan Ms. Contreras is an 87 year old male with a history of CVA who was admitted to the hospital due to lower extremity weakness and concern over stroke. Possible TIA Possible complex partial seizure - Appreciate neurology input. - Patient was started on Aspirin and plavix in November 2017. - If there is a strong suspicion for TIA, next step would be to consider warfarin or other newer oral anti-coagulants. - If anti-coagulation not preferred by family, we will re-start Plavix. Cardiomyopathy Aortic stenosis with reduced ejection fraction - Will discuss with patient's family. Patient may not be a candidate even for TAVR - Given reduced EF 30-35%, warfarin maybe reasonable for stroke prevention Full code. SCDs.
[2018-04-23] MEDS: Insulin NovoLOG Aspart Correctional Sugar Inj SQ SCH ×5 (04:29→23:04)
[2018-04-23] MEDS: Sod Chloride 0.9% Inj 1,000 ML IV.CONT SCH ×3 (04:30→18:13)
--- NOTE | 2018-04-23 10:11 | P.PN ---
Subjective Interval history: Follow up for TIA/Complex partial seizure as well as Cardiomyopathy and Aortic stenosis. Patient is resting in bed, more alert compared to yesterday. No fever , chills. Had some breakfast. Sons at bedside. Sons believe patient had decent quality of life before this admission. He lives at an [facility] and was ambulatory with a walker. They would like to discuss with Cardiology regarding reduced EF as well as aortic stenosis. Physical Exam Vital signs: Vital Signs 04/22/18 11:00 04/22/18 11:30 04/22/18 12:00 Temperature Pulse Rate 88 94 H 88 Respiratory Rate 23 24 26 H Blood Pressure 150/73 H Pulse Oximetry 98 04/22/18 13:00 04/22/18 14:00 04/22/18 15:00 Temperature Pulse Rate 96 H 82 86 Respiratory Rate 21 26 H 20 Blood Pressure Pulse Oximetry 94 L 96 96 04/22/18 16:00 04/22/18 16:36 04/22/18 17:00 Temperature 97.3 F L Pulse Rate 92 H 86 80 Respiratory Rate 25 H 24 6 L Blood Pressure 172/63 H Pulse Oximetry 95 97 92 L 04/22/18 18:00 04/22/18 19:00 04/22/18 19:33 Temperature Pulse Rate 88 100 H 102 H Respiratory Rate 22 20 26 H Blood Pressure 184/91 H 175/86 H Pulse Oximetry 95 96 95 04/22/18 19:39 04/22/18 20:00 04/22/18 23:34 Temperature Pulse Rate 99 H 108 H Respiratory Rate 26 H Blood Pressure 144/75 H Pulse Oximetry 95 04/23/18 00:00 04/23/18 03:00 04/23/18 04:00 Temperature Pulse Rate 98 H 104 H 124 H Respiratory Rate 15 15 20 Blood Pressure 125/74 122/65 164/81 H Pulse Oximetry 04/23/18 05:00 04/23/18 06:00 04/23/18 08:52 Temperature Pulse Rate 114 H 102 H Respiratory Rate 26 H 25 H Blood Pressure 143/94 H 132/64 Pulse Oximetry 97 98 Intake & Output 04/22/18 04/23/18 04/23/18 18:59 06:59 18:59 Intake Total 1000 / 1000 1000 / 1000 Balance 1000 / 1000 1000 / 1000 Weight 72.8 kg Intake: IV 1000 / 1000 1000 / 1000 NS Inj 1,000 ML @ 70 mls/hr IV. 1000 / 1000 1000 / 1000 CONT .[id number] KIMMIE Rx#: [id number] Other: # Voids 8 8 # Incontinent Voids 6 Narrative: GENERAL: Alert, NAD. SKIN: Warm and dry. HEAD: Normocephalic. EYES: No scleral icterus. No injection or drainage. NECK: Supple, trachea midline. No JVD or lymphadenopathy. CARDIOVASCULAR: Regular rate and rhythm murmurs, gallops, or rubs. There is a significant systolic murmur, best heard on the left sternal border, radiates to the carotid arteries. RESPIRATORY: Breath sounds equal bilaterally. No accessory muscle use. GASTROINTESTINAL: Abdomen soft, non-tender, nondistended. MUSCULOSKELETAL: No cyanosis, or edema. BACK: Nontender without obvious deformity. No CVA tenderness. Results - Labs CBC & Chem 7: 04/21/18 20:20 04/21/18 20:20 Laboratory Results - last 24 hr 04/22/18 04/22/18 04/22/18 07:43 07:43 13:03 POC Glucose 229 H Hemoglobin A1c 8.7 H Triglycerides 200 H Cholesterol 183 LDL Cholesterol, Calc 104 H HDL Cholesterol 39.4 L Cholesterol/HDL Ratio 4.64 04/22/18 04/22/18 04/23/18 18:21 21:47 04:28 POC Glucose 294 H 264 H 269 H Hemoglobin A1c Triglycerides Cholesterol LDL Cholesterol, Calc HDL Cholesterol Cholesterol/HDL Ratio 04/23/18 08:04 POC Glucose 207 H Hemoglobin A1c Triglycerides Cholesterol LDL Cholesterol, Calc HDL Cholesterol Cholesterol/HDL Ratio - Imaging Head CT 04/21/18 19:50 CONCLUSION: 1. Diffuse cerebral atrophy. 2. No acute infarct, acute hemorrhage, midline shift or extra-axial fluid collections. * Report was called by Dr. Zimmerman to Dr. Hwang at 8:15 PM on 04/21/2018. Carotid Doppler Study 04/22/18 00:00 CONCLUSION: 1. Right Internal Carotid Artery: Partially calcified atheromatous plaque with 50-69% stenosis of the proximal ICA. 2. Left Internal Carotid Artery: Mild plaque without stenosis. 3. There is a relative reduction in velocity involving the right common carotid artery when compared to the left side raising concern for proximal brachiocephalic artery or common carotid artery origin stenosis. CTA of the carotid arteries would be beneficial to further assess this region. Head MRA 04/23/18 00:00 CONCLUSION: Negative MRA Cow ([place] [facility] [place]) non contrast. Head CTA 04/23/18 00:07 CONCLUSION: Negative CTA Head. 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 Assessment and Plan - Plan Ms. Contreras is an 87 year old male with a history of CVA who was admitted to the hospital due to lower extremity weakness and concern over stroke. Possible TIA Possible complex partial seizure - Appreciate neurology input. - Patient was started on Aspirin and plavix in November 2017. - If there is a strong suspicion for TIA, next step would be to consider warfarin or other newer oral anti-coagulants. - If anti-coagulation not preferred by family, we will re-start Plavix. - Patient's family will discuss regarding possibility of Warfarin use. Cardiomyopathy Aortic stenosis with reduced ejection fraction - Will discuss with patient's family. Patient may not be a candidate even for TAVR - Given reduced EF 30-35%, warfarin maybe reasonable for stroke prevention - Will consult Cardiology for an eval as well as for an input with regards to aortic stenosis. Full code. Will start patient on Lovenox for DVT prophylaxis.
--- NOTE | 2018-04-23 11:51 | CT ---
EXAM DATE: 04/23/2018 11:43 AM EDT AGE/SEX: 87 years / Male INDICATIONS: Stroke alert 2 days ago. Altered mental status. Lower extremity weakness. CLINICAL DATA: This is the patient's initial encounter. Patient reports that signs and symptoms have been present for 2 days and indicates a pain score of 0/10. MEDICAL/SURGICAL HISTORY: Cardiovascular disease. Cerebrovascular disease. CABG. RADIATION DOSE: 42.25 CTDI (mGy) ; Combined studies COMPARISON: [facility], MRA BRAIN W/O CONTRAST, 12/14/2017. . TECHNIQUE: Volumetric scanning was performed using a multi-row detector CT scanner during bolus infu neo of 85 ml Omnipaque 350 (iohexol) nonionic water-soluble contrast as a cumulative dose for multi ple exams. The data was post processed with a variety of visualization algorithms including full vo lume maximum intensity projection, multi-planar sliding thin slab reformation, curved planar reformat ion, and surface rendering techniques. Using automated exposure control and adjustment of the mA and /or kV according to patient size, radiation dose was kept as low as reasonably achievable to obtain o ptimal diagnostic quality images. DICOM format image data is available electronically for review and comparison. FINDINGS: There is excellent visualization of the major intracranial arteries out to the second-order branch ve ssels. There is no evidence for aneurysm, vessel truncation or stenosis, and no evidence for vascula r malformation. CONCLUSION: Negative CTA Head. Electronically signed by: Ryan Hudson MD 04/23/2018 11:50 AM EDT
--- NOTE | 2018-04-23 11:57 | CT ---
EXAM DATE: 04/23/2018 11:44 AM EDT AGE/SEX: 87 years / Male INDICATIONS: Stroke alert 2 days ago. Altered mental status. Lower extremity weakness. CLINICAL DATA: This is the patient's initial encounter. Patient reports that signs and symptoms have been present for 2 days and indicates a pain score of 0/10. MEDICAL/SURGICAL HISTORY: Cardiovascular disease. Cerebrovascular disease. CABG. RADIATION DOSE: 42.25 CTDI (mGy) ; Combined studies COMPARISON: No prior exams available for comparison. TECHNIQUE: Volumetric scanning was performed using a multirow detector CT scanner during bolus infus ion of 85 ml Omnipaque 350 (iohexol) nonionic water-soluble contrast as a cumulative dose for multip le exams. The data was postprocessed with a variety of visualization algorithms including full-volu me maximum intensity projection, multiplanar sliding thin-slab reformation, curved-planar reformation , and surface-rendering techniques. Using automated exposure control and adjustment of the mA and/or kV according to patient size, radiation dose was kept as low as reasonably achievable to obtain opti mal diagnostic quality images. DICOM format image data is available electronically for review and co mparison. Percent stenosis is calculated using the diameter of the stenotic region over the diameter of the nor mal distal internal carotid artery. FINDINGS: Aortic Arch: Truncus arch anatomy noted. Arch vessels are widely patent. Right Carotid: Eccentric calcific plaque involving the origin of the right ICA producing close to 50 % stenotic narrowing. Beyond this proximal disease, the ICA regains normal caliber and appearance and is widely patent to the skull base. Left Carotid: The common carotid artery is intact. The carotid bulb has a normal configuration with out ulceration or narrowing. The internal carotid artery lumen is smooth without stenosis. The exte rnal carotid artery is intact. Vertebrals: The vertebral arteries have a symmetric diameter. No stenotic lesions are seen. CONCLUSION: 50% right carotid bifurcation stenosis. Electronically signed by: Ryan Hudson MD 04/23/2018 11:56 AM EDT
--- NOTE | 2018-04-23 12:01 | MR ---
EXAM DATE: 04/23/2018 11:38 AM EDT AGE/SEX: 87 years / Male INDICATIONS: CVA. CLINICAL DATA: This is the patient's initial encounter. Patient reports that signs and symptoms have been present for 1 day and indicates a pain score of 0/10. MEDICAL/SURGICAL HISTORY: Diabetes mellitus type II. Hypertension. CABG. Neck stent. COMPARISON: [facility], MRA BRAIN W/O CONTRAST, 12/14/2017. . TECHNIQUE: 3D [id number] MRA was performed. Source images, multiplanar STS MIP, and 3D volum e MIP reconstructions were reviewed. FINDINGS: There is excellent visualization of the major intracranial arteries out to the second-order branch ve ssels. There is no evidence for aneurysm, vessel truncation or stenosis, and no evidence for vascula r malformation. CONCLUSION: Negative MRA Cow ([place] [facility] [place]) non contrast. Electronically signed by: Ryan Hudson MD 04/23/2018 11:59 AM EDT
--- NOTE | 2018-04-23 12:07 | MR ---
EXAM DATE: 04/23/2018 11:40 AM EDT AGE/SEX: 87 years / Male INDICATIONS: CVA. CLINICAL DATA: This is the patient's initial encounter. Patient reports that signs and symptoms have been present for 3 days and indicates a pain score of 0/10. MEDICAL/SURGICAL HISTORY: Hypertension. Diabetes mellitus type II. CABG. Stent in neck. COMPARISON: [facility], MRI BRAIN W/O CONTRAST, 12/14/2017. . TECHNIQUE: Multiplanar, multisequence examination of the brain was performed without contrast. FINDINGS: Study is degraded by patient motion. There is a focus of restricted diffusion in the left thalamus associated with increased T2 signal con sistent with evolving subacute infarction. Elsewhere, symmetric central and cortical atrophic change is noted. There is moderate patchy T2 prolo ngation in periventricular and occasional subcortical white matter which is stable and likely microva scular ischemic in etiology. There is no evidence of intracranial mass or hemorrhage. The extracranial structures are grossly ever gn in intact. CONCLUSION: Subacute left thalamic infarction. Electronically signed by: Ryan Hudson MD 04/23/2018 12:06 PM EDT
[2018-04-23] MEDS: Enoxaparin Inj 40 MG/0.4 ML Syringe SQ SCH (13:16)
[2018-04-23] MEDS: amLODIPine 5 MG Tablet PO SCH (13:16)
--- NOTE | 2018-04-23 18:04 | MB ---
cc: Bryanna Hussein MD DATE: 04/23/2018 REASONS FOR CONSULTATION: Aortic stenosis and cardiomyopathy. HISTORY OF PRESENT ILLNESS: Mr. Contreras is an 87-year-old man, who does have a history of multiple CVAs and dementia, who is an [facility] resident. He presented to the hospital with lower extremity weakness and confusion. The patient underwent an echo, which was found to have both aortic stenosis and a reduced ejection fraction. Cardiology was subsequently consulted. The patient is really not able to give any valuable history. His son indicates that he does typically ambulate and converse, though is in an NURSING HOME. PAST MEDICAL HISTORY: 1. Significant for multiple CVAs. 2. Dementia. 3. Prior CABG. 4. Hypertension. CURRENT MEDICATIONS: Per the record. SOCIAL HISTORY: The patient is an NURSING HOME resident. REVIEW OF SYSTEMS: Patient is unable. FAMILY HISTORY: Unable. PHYSICAL EXAMINATION: VITAL SIGNS: 90, 28, 161/77. GENERAL: He is an overweight man who, is in no apparent distress. NECK: Free from JVD. LUNGS: Clear to auscultation. CARDIOVASCULAR: He has a harsh systolic ejection murmur with a regular rhythm. No rubs or gallops are appreciated. ABDOMEN: Soft. EXTREMITIES: Free from edema. DIAGNOSTIC DATA: Echocardiogram from 04/22/2018 shows an EF of 30-35%. The aortic valve has a mean gradient of 19 mmHg. Telemetry shows normal sinus rhythm, with a PVC. LABORATORY DATA: Significant for a creatinine of 1.5, sodium of 133, and a potassium of 5.5. ASSESSMENT AND PLAN: 1. Aortic stenosis - the patient certainly has at least mild to moderate aortic stenosis. With his reduced EF, it is difficult to know if this is potentially severe aortic stenosis. He is in any case asymptomatic. He is not a candidate for a TAVR or AVR in the setting of a cerebrovascular accident and/or mental status changes. Even if he were to recover his mental status, he would be a relatively poor candidate given his multiple comorbid conditions including renal insufficiency, hyponatremia, and dementia. Nonetheless, this could be reconsidered as an outpatient if he does improve. 2. Cardiomyopathy - again is not clear if this is secondary to an old ischemic etiology versus hypertensive versus aortic stenosis. In any case, he is quite hypertensive this admission and I would add a beta wellington. VITALY inhibitors are felt relatively contraindicated with his renal insufficiency. 3. History of CABG and coronary artery disease - as above. The patient does appear essentially asymptomatic at this point. I would continue with conservative measures. 4. Mental status changes - this is per the primary team. MD FRANCO Moreau/alex , 05:18 PM , 05:29 PM
[2018-04-24 06:36] LABS: Baso # (Auto) 0.1 th/mm3 (0.0-0.2); Baso % (Auto) 0.5 % (0.0-2.0); Eos # (Auto) 0.1 th/mm3 (0.0-0.4); Eos % (Auto) 1.3 % (0.0-4.0); Hematocrit 42.2 % (39.0-51.0); Hemoglobin 14.3 gm/dL (13.0-17.0); Lymph # (Auto) 1.6 th/mm3 (1.0-4.8); Lymph % (Auto) 15.1 % (9.0-44.0); Mean Corpuscular Hemoglobin 29.4 pg (27.0-34.0); Mean Corpuscular Volume 86.5 fL (80.0-100.0); Mean Platelet Volume 8.5 fL (7.0-11.0); Mono # (Auto) 0.7 th/mm3 (0.0-0.9); Mono % (Auto) 6.9 % (0.0-8.0); Neut # (Auto) 7.8 th/mm3 (1.8-7.7); Neut % (Auto) 76.2 % (16.0-70.0); Platelet Count 111 th/mm3 (150-450); Red Blood Count 4.88 mil/mm3 (4.50-5.90); Red Cell Distribution Width 13.7 % (11.6-17.2); White Blood Count 10.3 th/mm3 (4.0-11.0)
[2018-04-24] MEDS: Insulin NovoLOG Aspart Correctional Sugar Inj SQ SCH ×5 (06:41→22:18)
[2018-04-24 07:21] LABS: Calcium 8.1 mg/dL (8.5-10.1); Carbon Dioxide 25.3 meq/L (21.0-32.0); Potassium 3.6 meq/L (3.5-5.1)
--- NOTE | 2018-04-24 08:48 | MG ---
cc: Madeline Huggins MD EEG NUMBER: [id number] REFERRING PHYSICIAN: Wai Stephens MD With photic stimulation, awake, drowsy, asleep study. MRI, subacute left thalamic infarct. Admitted with stroke symptoms on insulin, Norvasc, Lovenox, Toprol. DESCRIPTION OF RECORD: There is quite a bit of artifact but overall 6 Hz , 5.5-6 Hz background noted. Some abnormalities in the EKG, difficult to tell if this is a normal rhythm or not unfortunately. Maybe some atrial fibrillation. Otherwise overall symmetrical background slowing. No epileptiform features. Hyperventilation was not performed. Photic stimulation with a mild driving response. IMPRESSION: Abnormal EEG due to mild background slowing may be related to the patient's history of dementia versus encephalopathic process. No epileptiform features. Clinical correlation. MD KASSY Wall/vaibhav/traci , 07:49 AM , 07:53 AM
--- NOTE | 2018-04-24 09:51 | P.PNIM ---
Subjective Interval history: The pt was resting comfortably in bed. He had no acute complaints. Family at the bedside were wondering about disposition. They also stated they would prefer he stay on aspirin and Plavix rather than start Coumadin. Discussed with nursing. Physical Exam Vital signs: Vital Signs 04/23/18 10:00 04/23/18 12:00 04/23/18 13:00 Temperature Pulse Rate 102 H 104 H 102 H Respiratory Rate 27 H 25 H 24 Blood Pressure 143/76 H 145/91 H 181/85 H Pulse Oximetry 04/23/18 14:00 04/23/18 15:00 04/23/18 17:00 Temperature 98.3 F Pulse Rate 112 H 90 96 H Respiratory Rate 29 H 28 H 33 H Blood Pressure 161/81 H 161/77 H 146/65 H Pulse Oximetry 04/23/18 19:50 04/23/18 20:00 04/24/18 04:00 Temperature 98.3 F 98.0 F Pulse Rate 93 H 94 H Respiratory Rate 18 18 Blood Pressure 146/63 H 168/78 H Pulse Oximetry 97 98 97 04/24/18 07:00 04/24/18 08:05 04/24/18 08:36 Temperature Pulse Rate 93 H 90 Respiratory Rate Blood Pressure Pulse Oximetry 97 Intake & Output 04/23/18 04/24/18 04/24/18 18:59 06:59 18:59 Intake Total 720 / 720 Balance 720 / 720 Weight 74.1 kg Intake: Oral 720 / 720 Other: # Incontinent Voids 3 # Urine Diapers 7 Narrative: GENERAL: NAD. SKIN: Warm and dry. HEAD: Normocephalic. EYES: No scleral icterus. No injection or drainage. NECK: Supple, trachea midline. No JVD or lymphadenopathy. CARDIOVASCULAR: Regular rate and rhythm murmurs, gallops, or rubs. There is a significant systolic murmur, best heard on the left sternal border, radiates to the carotid arteries. RESPIRATORY: Breath sounds equal bilaterally. No accessory muscle use. GASTROINTESTINAL: Abdomen soft, non-tender, nondistended. MUSCULOSKELETAL: No cyanosis, or edema. BACK: Nontender without obvious deformity. No CVA tenderness. Results - Labs CBC & Chem 7: 04/24/18 05:50 04/24/18 05:50 Laboratory Results - last 24 hr 09/02/0204/23/18 04/24/18 12:22 16:38 05:50 CBC w Diff Auto diff final WBC 10.3 RBC 4.88 Hgb 14.3 Hct 42.2 MCV 86.5 MCH 29.4 MCHC 34.0 RDW 13.7 Plt Count 111 L MPV 8.5 Neut % (Auto) 76.2 H Lymph % (Auto) 15.1 [place] % (Auto) 6.9 Eos % (Auto) 1.3 Baso % (Auto) 0.5 Neut # (Auto) 7.8 H Lymph # (Auto) 1.6 [place] # (Auto) 0.7 Eos # (Auto) 0.1 Baso # (Auto) 0.1 WBC Differential . Differential Comment . Sodium Potassium Chloride Carbon Dioxide Anion Gap BUN Creatinine Estimated GFR POC Glucose 251 H 303 H Random Glucose Calcium 04/24/18 04/24/18 05:50 07:38 CBC w Diff WBC RBC Hgb Hct MCV MCH MCHC RDW Plt Count MPV Neut % (Auto) Lymph % (Auto) [place] % (Auto) Eos % (Auto) Baso % (Auto) Neut # (Auto) Lymph # (Auto) [place] # (Auto) Eos # (Auto) Baso # (Auto) WBC Differential Differential Comment Sodium 138 Potassium 3.6 Chloride 103 Carbon Dioxide 25.3 Anion Gap 10 BUN 14 Creatinine 1.40 H Estimated GFR 48 L POC Glucose 248 H Random Glucose 252 H Calcium 8.1 L - Imaging Impressions Head MRI 04/23/18 00:00 CONCLUSION: Subacute left thalamic infarction. Head MRA 04/23/18 00:00 CONCLUSION: Negative MRA Cow ([place] [facility]) non contrast. Head CTA 04/23/18 00:07 CONCLUSION: Negative CTA Head. 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 Assessment and Plan - Plan Mr. Contreras is an 87 year old male with a history of CVA who was admitted to the hospital due to lower extremity weakness and concern of a stroke. Subacute CVA Possible complex partial seizure -EEG without obvious seizure activity. - Appreciate neurology input. - Patient was started on aspirin and Plavix in November 2017. - If there is a strong suspicion for TIA, next step would be to consider warfarin or other newer oral anti-coagulants. Family would prefer ASA/ Plavix. Resumed. -MRI showed left thalamic infarction. -case management for SNF placement. Cardiomyopathy Aortic stenosis with reduced ejection fraction - Given reduced EF 30-35%, warfarin may be reasonable for stroke prevention - cardiology consult appreciated. Conservative management recommended. Will need outpt follow-up HTN Blood pressure has been elevated. -continue Toprol XL. Increase amlodipine to 10 mg daily. Full code. Will start patient on Lovenox for DVT prophylaxis. Discharge Planning: Likely SNF in 1-2 days
[2018-04-24] MEDS ORDERED: amLODIPine 10 MG Tablet PO SCH (10:00)
[2018-04-24] MEDS: Enoxaparin Inj 40 MG/0.4 ML Syringe SQ SCH (10:25)
[2018-04-24] MEDS: Sod Chloride 0.9% Inj 1,000 ML IV.CONT SCH ×2 (10:26→22:19)
[2018-04-24] MEDS: amLODIPine 5 MG Tablet PO ONE ×2 (10:26→10:31)
[2018-04-24] MEDS: amLODIPine 5 MG Tablet PO SCH (10:31)
[2018-04-24] MEDS: Insulin Detemir Inj 1,000 UNIT/10 ML Vial SQ SCH (11:29)
[2018-04-24 17:56] LABS: Bilirubin,Urine Negative (Negative); Clarity,Urine Clear (Clear); Color,Urine Yellow (Yellw/Straw); Leukocyte Esterase,Urine Negative (Negative); Nitrite,Urine Negative (Negative); PH,Urine 5.5 (5.0-8.5); Specific Gravity,Urine Greater/Equal 1.030 (1.002-1.035)
[2018-04-24 18:07] LABS: Squamous Epithelial Cell,Urine 0-5 /hpf (0-5)
[2018-04-25] MEDS: Insulin NovoLOG Aspart Correctional Sugar Inj SQ SCH ×5 (05:19→22:52)
[2018-04-25 08:06] LABS: Potassium 3.8 meq/L (3.5-5.1)
[2018-04-25 08:11] LABS: Calcium 8.3 mg/dL (8.5-10.1)
[2018-04-25 08:12] LABS: Carbon Dioxide 26.5 meq/L (21.0-32.0); Magnesium 1.9 mg/dL (1.5-2.5)
[2018-04-25] MEDS: amLODIPine 10 MG Tablet PO SCH (08:19)
[2018-04-25] MEDS: Insulin Detemir Inj 1,000 UNIT/10 ML Vial SQ SCH ×2 (08:23→11:56)
[2018-04-25] MEDS: Enoxaparin Inj 40 MG/0.4 ML Syringe SQ SCH (08:24)
--- NOTE | 2018-04-25 11:11 | P.PNIM ---
Subjective Interval history: The pt was awake and alert. He was watching football. He denied pain or shortness of breath. Discussed with his family at the bedside. Physical Exam Vital signs: Vital Signs 04/24/18 13:37 04/24/18 14:00 04/24/18 16:00 Temperature 98.4 F 98.5 F Pulse Rate 74 87 Respiratory Rate 13 20 Blood Pressure 132/66 174/62 H Pulse Oximetry 98 94 L 97 04/24/18 18:38 04/24/18 19:40 04/24/18 22:00 Temperature 98.5 F Pulse Rate 91 H 93 H Respiratory Rate 18 Blood Pressure 132/72 168/80 H Pulse Oximetry 95 96 04/25/18 02:00 04/25/18 04:28 04/25/18 07:45 Temperature 97.0 F L 97.8 F Pulse Rate 82 80 Respiratory Rate 16 16 Blood Pressure 124/70 125/85 Pulse Oximetry 97 98 94 L 04/25/18 07:47 Temperature 97.5 F L Pulse Rate 100 H Respiratory Rate 20 Blood Pressure 141/82 H Pulse Oximetry 95 Intake & Output 04/24/18 04/25/18 04/25/18 18:59 06:59 18:59 Intake Total 1000 / 1000 Output Total 500 / 500 Balance 500 / 500 Weight 73.1 kg Intake: IV 1000 / 1000 NS Inj 1,000 ML @ 70 mls/hr IV. 1000 / 1000 CONT .[id number] [facility] Rx#: [id number] Output: Urine 500 / 500 Other: # Voids 2 Narrative: GENERAL: NAD. SKIN: Warm and dry. HEAD: Normocephalic. EYES: No scleral icterus. No injection or drainage. NECK: Supple, trachea midline. No JVD or lymphadenopathy. CARDIOVASCULAR: Regular rate and rhythm murmurs, gallops, or rubs. There is a significant systolic murmur, best heard on the left sternal border, radiates to the carotid arteries. RESPIRATORY: Breath sounds equal bilaterally. No accessory muscle use. GASTROINTESTINAL: Abdomen soft, non-tender, nondistended. MUSCULOSKELETAL: No cyanosis, or edema. BACK: Nontender without obvious deformity. No CVA tenderness. Results - Labs CBC & Chem 7: 04/24/18 05:50 04/25/18 07:10 Laboratory Results - last 24 hr 04/24/18 04/24/1804/24/18 11:28 16:28 17:15 Sodium Potassium Chloride Carbon Dioxide Anion Gap BUN Creatinine Estimated GFR POC Glucose 240 H 198 H Random Glucose Calcium Magnesium Ur Collection Type Clean catch Urine Color Yellow Urine Clarity Clear Urine pH 5.5 Ur Specific [place] Greater/equal 1.030 Urine Protein 100 H Urine Glucose (UA) 1000 or greater H Urine Ketones 15 H Urine Occult Blood Moderate H Urine Nitrate Negative Urine Bilirubin Negative Urine Urobilinogen 1.0 Ur Leukocyte Esterase Negative Urine RBC 4-15 H Ur Squamous Epith Cells 0-5 Micro UA Comment Culture not ind Ur Microscopic Review Microscopic reviewed Urine Culture Comments Culture not ind 04/24/18 04/25/18 04/25/18 20:57 04:38 07:10 Sodium 139 Potassium 3.8 Chloride 104 Carbon Dioxide 26.5 Anion Gap 9 BUN 12 Creatinine 1.20 Estimated GFR 58 L POC Glucose 239 H 192 H Random Glucose 204 H Calcium 8.3 L Magnesium 1.9 Ur Collection Type Urine Color Urine Clarity Urine pH Ur Specific [place] Urine Protein Urine Glucose (UA) Urine Ketones Urine Occult Blood Urine Nitrate Urine Bilirubin Urine Urobilinogen Ur Leukocyte Esterase Urine RBC Ur Squamous Epith Cells Micro UA Comment Ur Microscopic Review Urine Culture Comments 04/25/18 08:02 Sodium Potassium Chloride Carbon Dioxide Anion Gap BUN Creatinine Estimated GFR POC Glucose 231 H Random Glucose Calcium Magnesium Ur Collection Type Urine Color Urine Clarity Urine pH Ur Specific [place] Urine Protein Urine Glucose (UA) Urine Ketones Urine Occult Blood Urine Nitrate Urine Bilirubin Urine Urobilinogen Ur Leukocyte Esterase Urine RBC Ur Squamous Epith Cells Micro UA Comment Ur Microscopic Review Urine Culture Comments Assessment and Plan - Plan Mr. Contreras is an 87 year old male with a history of CVA who was admitted to the hospital due to lower extremity weakness and concern of a stroke. Subacute CVA Possible complex partial seizure -EEG without obvious seizure activity. - Appreciate neurology input. - Patient was started on aspirin and Plavix in November 2017. -next step would be to consider warfarin or other newer oral anti- coagulants. Family would prefer ASA/ Plavix. Resumed. -MRI showed left thalamic infarction. -case management for SNF placement. -outpt follow-up with neurology. Cardiomyopathy Aortic stenosis with reduced ejection fraction - Given reduced EF 30-35%, warfarin may be reasonable for stroke prevention - cardiology consult appreciated. Conservative management recommended. Will need outpt follow-up HTN Blood pressure has been elevated. -continue Toprol XL. Increase amlodipine to 10 mg daily. Improved. DM Blood sugar remains elevated. -increase Levemir to 15 units daily. -insulin sliding scale. Full code. Will start patient on Lovenox for DVT prophylaxis. Discharge Planning: D/c to SNF when bed available
[2018-04-26] MEDS: Insulin NovoLOG Aspart Correctional Sugar Inj SQ SCH ×3 (03:54→11:37)
[2018-04-26] MEDS: amLODIPine 10 MG Tablet PO SCH (08:24)
[2018-04-26] MEDS: Insulin Detemir Inj 1,000 UNIT/10 ML Vial SQ SCH (08:25)
[2018-04-26] MEDS: Enoxaparin Inj 40 MG/0.4 ML Syringe SQ SCH (08:25)
--- NOTE | 2018-04-26 09:27 | P.DS ---
Date of admission: 04/23/18 14:35 Primary care physician: Raymon Crenshaw MD Brief History from admission: Mr. Contreras is a pleasant 87 year old male with a history of previous CVAs, currently on Plavix who was brought to the hospital due to lower extremity weakness, confusion. Patient's son is at bedside and does not know if patient had any unilateral weakness or speech difficulty. Patient's son feel that patient is now at his baseline. No chest pain, shortness of breath, fever, chills. No changes in bowel or bladder habits. Past medical history: Previous CVAs, DM, hypertensions. Past surgical history: Mo major Family history: No family history of Alzheimer's or Parkinson's. Social history: Does not use tobacco, alcohol or illicit drugs. Patient update on day of discharge: The patient was resting comfortably in bed. His son was at the bedside. He had no acute concerns. DS: Diagnosis - Discharge Diagnosis (1) CVA (cerebral vascular accident) Status: Acute DS: Summary Hospital Course: Subacute CVA Mr. Contreras is an 87 year old male with a history of CVA who was admitted to the hospital due to lower extremity weakness and concern of a stroke. Patient was started on aspirin and Plavix in November 2017. EEG without obvious seizure activity. Neurology was consulted. MRI showed left thalamic infarction. Next step would be to consider warfarin or other newer oral anticoagulants. Family would prefer ASA/ Plavix at this time. The pt worked with physical and occupational therapy. Case management was consulted. The pt will have outpt follow-up with neurology. Cardiomyopathy/Aortic stenosis with reduced ejection fraction EF 30-35%. Cardiology was consulted. Conservative management recommended. Will follow-up with cardiology as an outpt. HTN Blood pressure has been elevated. We continued Toprol XL. We increased amlodipine to 10 mg daily. DM We increased Levemir to 15 units daily. He was placed on an insulin sliding scale. He will resume his home regime upon discharge. - Time Spent with Patient Total time spent providing and/or coordinating discharge services: Greater than 30 minutes - Quality: Stroke Last date observed well: 04/21/18 Last time observed well: 18:30 - Quality: VTE Deep Vein Thrombosis/Pulmonary Embolism Present on Admission: No Exam Vital signs: Vital Signs 04/25/18 12:14 04/25/18 16:00 04/25/18 20:00 Temperature 97.8 F 97.6 F 98.0 F Pulse Rate 96 H 94 H 85 Respiratory Rate 20 20 18 Blood Pressure 144/78 H 140/72 165/77 H Pulse Oximetry 95 95 95 04/26/18 04:00 04/26/18 07:41 Temperature 98.0 F 96.8 F L Pulse Rate 91 H 62 Respiratory Rate 18 20 Blood Pressure 160/72 H 163/74 H Pulse Oximetry 95 96 Intake & Output 04/25/18 04/26/18 04/26/18 18:59 06:59 18:59 Intake Total 841 / 841 Output Total 400 / 400 Balance 841 / 841 -400 / -400 Weight 73 kg Intake: IV NS Inj 1,000 ML @ 70 mls/hr IV. CONT .[id number] Rx#: [id number] Oral 840 / 840 Output: Urine 400 / 400 Other: # Voids 4 4 Narrative: GENERAL: NAD. SKIN: Warm and dry. HEAD: Normocephalic. EYES: No scleral icterus. No injection or drainage. NECK: Supple, trachea midline. No JVD or lymphadenopathy. CARDIOVASCULAR: Regular rate and rhythm murmurs, gallops, or rubs. There is a significant systolic murmur, best heard on the left sternal border, radiates to the carotid arteries. RESPIRATORY: Breath sounds equal bilaterally. No accessory muscle use. GASTROINTESTINAL: Abdomen soft, non-tender, nondistended. MUSCULOSKELETAL: No cyanosis, or edema. BACK: Nontender without obvious deformity. No CVA tenderness. Results Procedures completed during hospitalization: None Labs on day of discharge: Labs from last 24 hours 04/26/18 04/26/18 04/25/18 07:36 03:29 16:44 POC Glucose 232 H 204 H 249 H 04/25/18 11:37 POC Glucose 247 H - Impressions ITS Impressions Head CT 04/21/18 19:50 CONCLUSION: 1. Diffuse cerebral atrophy. 2. No acute infarct, acute hemorrhage, midline shift or extra-axial fluid collections. * Report was called by Dr. Zimmerman to Dr. Hwang at 8:15 PM on 04/21/2018. Carotid Doppler Study 04/22/18 00:00 CONCLUSION: 1. Right Internal Carotid Artery: Partially calcified atheromatous plaque with 50-69% stenosis of the proximal ICA. 2. Left Internal Carotid Artery: Mild plaque without stenosis. 3. There is a relative reduction in velocity involving the right common carotid artery when compared to the left side raising concern for proximal brachiocephalic artery or common carotid artery origin stenosis. CTA of the carotid arteries would be beneficial to further assess this region. Head MRI 04/23/18 00:00 CONCLUSION: Subacute left thalamic infarction. Head MRA 04/23/18 00:00 CONCLUSION: Negative MRA Cow ([place] [facility]) non contrast. Head CTA 04/23/18 00:07 CONCLUSION: Negative CTA Head. 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 Discharge Plan - Discharge Disposition Patient Disposition: 03 Discharge to SNF - Discharge Condition Condition: Stable - Discharge Order Discharge Orders: Discharge Order (Routine); Ordered 04/26/18 Ordered By: Jeffery Tolentino - Discharge Details Anticipated Discharge Date: 04/26/18 - Physicians Team Primary Care Provider: Raymon Crenshaw Attending Provider: Jeffery Tolentino Other Providers: Wai Stephens MD ; Bryanna Hussein MD ; [facility],Agency ; [place]
== END 2018-04-26 13:10 ==
LOC: PHEDA 19:48 → PHED 19:48 → PHICU 04-22 00:05 → PH3 04-23 17:55
PROVIDERS: ADMIT Hospitalist; ATTEND Hospitalist